=== PATIENT | female | born 2000 | race Caucasian/White ===

== ENCOUNTER 2021-12-13 21:18 | Outpatient (CLI) | payer BC, MEDICAID, SELFPAY ==
[2021-12-13] VITALS (9 sets, daily range): BP systolic 90–103; BP diastolic 50–55; PULSE 125–142; RESP 16; TEMP 37.8; BMI 25.7
[2021-12-13 21:52] LABS: Bilirubin Urine Neg (Negative); Blood Urine Neg (Negative); Glucose Urine UA Norm (Normal); Ketones Urine 3+ (Negative); Leukocyte Esterase Urine Trace (Negative); Nitrate Urine Negative (Negative); Protein Urine Neg (Negative); Specific Gravity, Urine 1.025 (1.005-1.030); Urine Color Yellow (Yellow); Urobilinogen Urine Norm (Negative); pH Urine 5 (5-7)
[2021-12-13 21:53] LABS: RBC Urine 0-4 /hpf (0-2); WBC Urine 15-25 /hpf (0-5)
[2021-12-13 21:54] LABS: Add Urine Culture? No; Bacteria Urine 3+ /hpf; Squamous Epithelial Cell Urine 40-55 /hpf (0-5)
[2021-12-13] MEDS: ondansetron 4 MG Tablet PO (22:17)
[2021-12-13 22:32] LABS: Urine Color Yellow (Yellow)
[2021-12-13 22:33] LABS: Bilirubin Urine Neg (Negative); Blood Urine Neg (Negative); Glucose Urine UA Norm (Normal); Ketones Urine 3+ (Negative); Leukocyte Esterase Urine Negative (Negative); Nitrate Urine Negative (Negative); Protein Urine Neg (Negative); Specific Gravity, Urine 1.025 (1.005-1.030); Urine Appearance Clear (CLEAR); Urobilinogen Urine Norm (Negative); pH Urine 5 (5-7)
[2021-12-13 22:34] LABS: Add Urine Culture? No; Bacteria Urine 1+ /hpf; Mucus Urine 4+ /hpf; RBC Urine 0-4 /hpf (0-2); SARS Covid-2 Antigen Negative (Negative)
== END 2021-12-13 22:55 | disposition home or self-care (01) ==
LOC: OPOB 21:21 → OBGYN 21:22
PROVIDERS: Visit Provider Family Medicine
DX: O26.899 Other specified pregnancy related conditions, unspecified trimester (principal); Z3A.00 Weeks of gestation of pregnancy not specified; M54.9 Dorsalgia, unspecified; R11.0 Nausea
CPT/HCPCS: 59025; 81001; 87426; 99211; Q0162

== ENCOUNTER 2021-12-28 12:30 | Outpatient (CLI) | payer BC, MEDICAID, SELFPAY ==
[2021-12-28 12:40] VITALS: BMI 24.5
[2021-12-28 12:49] VITALS: BP 110/60; PULSE 96; TEMP 35.9
[2021-12-28 13:04] VITALS: BP 105/56; PULSE 82
--- NOTE | 2021-12-28 13:25 | PC.NURSE ---
Patient reports she is taking an antibiotic but doesn't know the dose or name. Patient took antibiotic today at 1030
== END 2021-12-28 13:12 | disposition home or self-care (01) ==
LOC: OPOB 12:38 → OBGYN 12:47
PROVIDERS: Visit Provider Family Medicine
DX: O24.419 Gestational diabetes mellitus in pregnancy, unspecified control (principal); Z3A.00 Weeks of gestation of pregnancy not specified
CPT/HCPCS: 59025

== ENCOUNTER 2022-01-04 11:20 | Outpatient (CLI) | payer BC, MEDICAID, SELFPAY ==
[2022-01-04 11:31] VITALS: TEMP 36.3
[2022-01-04 11:32] VITALS: BP 100/59; PULSE 88
[2022-01-04 11:55] VITALS: BP 101/55; PULSE 90; TEMP 36.2
[2022-01-04 12:14] VITALS: BMI 25.3
[2022-01-04 12:51] VITALS: BP 101/55; PULSE 90
== END 2022-01-04 12:56 | disposition home or self-care (01) ==
LOC: OPOB 11:23 → OBGYN 11:24
PROVIDERS: Visit Provider Family Medicine
DX: O24.419 Gestational diabetes mellitus in pregnancy, unspecified control (principal); Z3A.00 Weeks of gestation of pregnancy not specified
CPT/HCPCS: 59025

== ENCOUNTER 2022-01-11 10:08 | Outpatient (CLI) | payer BC, MEDICAID, SELFPAY ==
[2022-01-11 10:08] VITALS: BMI 26.0
[2022-01-11 10:14] VITALS: BP 110/72; PULSE 101; TEMP 35.8
[2022-01-11 10:35] VITALS: BP 110/68; PULSE 89
--- NOTE | 2022-01-11 11:03 | PC.NURSE ---
PT HERE FOR SCHEDULED NST. STATES NO CTX BUT INCREASED PELVIC PRESSURE, REQUESTS CERVICAL EXAM. SVE UNCHANGED FROM OFFICE VISIT THURSDAY. NST AND EXAM REPORTED TO DR HORTON, ORDERS TO D/C
== END 2022-01-11 10:50 | disposition home or self-care (01) ==
LOC: OPOB 10:10 → OBGYN 10:11
PROVIDERS: Visit Provider Family Medicine
DX: O24.419 Gestational diabetes mellitus in pregnancy, unspecified control (principal); Z3A.00 Weeks of gestation of pregnancy not specified
CPT/HCPCS: 59025; 99211

== ENCOUNTER 2022-01-12 20:17 | Inpatient (IN) | payer BC, MEDICAID, SELFPAY ==
[2022-01-12] VITALS (9 sets, daily range): BP systolic 100–126; BP diastolic 60–68; PULSE 77–99; RESP 15–16; TEMP 36.3; BMI 26.0
[2022-01-12 19:53] LABS: Basophils % 0.3 %; Eosinophils % 0.3 %; Hematocrit 35.6 % (37.0-47.0); Hemoglobin 12.3 g/dL (11.5-15.3); Lymphocytes # 1.7 10^3/uL (1.5-6.5); Lymphocytes % 21.2 %; Mean Corpuscular HGB Conc 34.6 g/dL (30.0-36.0); Mean Corpuscular Hemoglobin 31.2 pg (28.0-34.0); Mean Corpuscular Volume 90.4 fl (81-99); Mean Platelet Volume 10.3 fL (7.4-10.4); Monocytes # 0.7 10^3/uL (0.2-0.9); Neutrophils # 5.33 10^3/uL (1.8-8.0); Neutrophils % 68.6 %; Nucleated Red Blood Cells % 0 %; Platelet Count 170 10^3/cmm (130-400); Red Blood Count 3.94 10^6/uL (4.1-5.3); Red Cell Distribution Width 14.4 % (12.1-15.1); White Blood Count 7.8 10^3/uL (4.5-13.0)
[2022-01-12 20:55] LABS: Glucose Point of Care 73 mg/dL (70-110)
[2022-01-12] MEDS: miSOPROStol 100 mcg tablet 25 MCG VAGINAL (21:03)
--- NOTE | 2022-01-12 23:31 | PC.NURSE ---
First baby was given up for adoption to patient's sister, Nisha. This was arranged prior to delivery and sister was present for that delivery. This is the same sister who is here as her support person for this delivery. Patient will be keeping this baby.
[2022-01-13] VITALS (70 sets, daily range): BP systolic 82–147; BP diastolic 44–96; PULSE 52–94; RESP 16–18; TEMP 36.1–36.9; O2SAT 92–100
[2022-01-13] MEDS: morphine 4 mg/mL SDV 1 mL 8 MG IM (00:36)
[2022-01-13] MEDS: promethazine 25 mg/mL SDV 1 mL IM (00:36)
[2022-01-13] MEDS: lactated ringers 1,000 ML 999 ML IV ×2 (01:15→07:27)
[2022-01-13] MEDS: miSOPROStol 100 mcg tablet 25 MCG VAGINAL (01:50)
[2022-01-13 03:15] LABS: Glucose Point of Care 76 mg/dL (70-110)
[2022-01-13] MEDS: fentaNYL 50 mcg/mL INJ 2mL IVP ×3 (05:10→07:27)
[2022-01-13 07:37] LABS: Glucose Point of Care 71 mg/dL (70-110)
--- NOTE | 2022-01-13 07:55 | ANES.PREANE2 ---
Pre-Anesthetic Assessment Height/Weight: Height 1.55 m Weight 62.596 kg Temp Pulse Resp BP 97.0 F L 67 18 111/66 01/13/22 05:14 01/13/22 07:41 01/13/22 07:27 01/13/22 07:41 Was Beta Leo taken within 24 hours: N/A Was Clonidine taken within 24 hours: N/A Social No alcohol and No tobacco Exam alert, oriented x 3, clear to auscultation bilaterally and regular rate & rhythm Airway Submandibular: within normal limits Cervical ROM: within normal limits Mallampati: Class I Dentition: full History/ROS No significant complaints Pulmonary None reported CV/HEM None reported None reported Hepatic None reported GI None reported Metabolic Diabetes Mellitus (GDM ) Musc/skel None reported Neuropsych None reported Anesthetic Plan ASA status: 1 Anesthesia: Anesthesia Evaluation and General Other: We discussed risk and benefits of general anesthesia including PONV, sore throat (sometimes severe), corneal abrasion, positioning and peripheral nerve injuries, life threatening allergic reaction, post operative ICU admission requiring prolonged intubation, stroke, heart attack, , and rare incidences of recall. Patient consents to proceed with general anesthesia. Risk of > 500 ml blood loss (7ml/kg in children): No Medications/Allergies Home Medications Medication Instructions Recorded Confirmed Last Taken Type prenat.vits,dmitri,ilp-thyi-ysaep 1 tab PO DAILY 12/13/21 12/28/21 12/28/21 09:00 History Allergies Allergy/AdvReac Type Severity Reaction Status Date / Time No Known Allergies Allergy Verified 12/28/21 13:26 Current Medications Generic Name Dose Route Start Last Admin Trade Name Mayank PRN Reason Stop Dose Admin Fentanyl 25 - 100 mcg 01/12/22 19:42 01/13/22 07:27 Fentanyl 50 Mcg/Ml Inj 2ml IVP 75 mcg Q1H PRN Administration SEVERE PAIN Lactated Ringer's 1,000 mls @ 999 mls/hr 01/12/22 19:42 01/13/22 07:27 Lactated Ringers IV 999 mls/hr .Q1H1M PRN Administration BLEEDING Lactated Ringer's 1,000 mls @ 999 mls/hr 01/12/22 19:42 01/13/22 01:46 Lactated Ringers IV 0 mls/hr .Q1H1M PRN Infusion Per L&D Rescitation Protocol [facility] Anesthesia Female Reproductive History : 2 Data Anesthesia : 01/12/22 19:30 Short CBC 01/12/22 Range/Units 19:30 WBC 7.8 (4.5-13.0) 10^3/uL Hgb 12.3 (11.5-15.3) g/dL Hct 35.6 L (37.0-47.0) % MCV 90.4 (81-99) fl Plt Count 170 (130-400) 10^3/cmm Neut % (Auto) 68.6 % Neut # (Auto) 5.33 (1.8-8.0) 10^3/uL Cardiac Studies: No Data to Display
--- NOTE | 2022-01-13 10:44 | PM.OPHPUD ---
Labor & Delivery H&P Update Date of Procedure: January 13, 2022 Date H&P Performed: 01/09/22 Changes to previous documentation: None Admission Diagnosis: 21-year-old 2 para 1-0-0-1 at 38 weeks and 4 days presenting for induction Primary indication for procedure: 38-week . Gestational diabetes Planned procedure: Spontaneous vaginal delivery Other information: The patient has had an unremarkable with exception of testing positive for gestational diabetes. Her blood sugars have been excellent on diet control alone. The remainder of her testing was within normal limits. Her blood type is O-. Her GBS status is negative.
--- NOTE | 2022-01-13 10:45 | P.PCNOB_ITS ---
Delivery Note: Date of delivery: January 13, 2022 Pre-delivery diagnoses: 1. 21-year-old 2 para 1-0-0-1at 38 weeks estimated gestational age. 2. Well-controlled gestational diabetic Post-delivery diagnoses: Status post spontaneous vaginal delivery Procedure: Spontaneous vaginal delivery Delivering Physician: Charlie Briscoe Estimated blood loss (mL): 50 Pre-Delivery Course: The patient presented to the hospital the night prior to delivery for induction. She was placed on Cytotec 25 mcg x 2 per vagina. The following morning an amniotomy was performed. An epidural was placed. She progressed to complete. Delivery: DELIVERY: The patient progressed to complete without difficulty. She delivered a female with a weight of 6 pounds 15 ounces with Apgars of 8, 9. The baby was delivered from the MEL position and placed on the mother's abdomen. The cord was then clamped and cut. There was no nuchal cord. There was no meconium. The placenta and 3 vessel cord were delivered intact shortly thereafter. The perineum and vaginal vault were carefully examined. No lacerations were noted. Both the mother and the baby were in stable condition. Post-Delivery Status: Good A&P Assessment and plan (1) 38 weeks gestation of : Status: Acute (2) Gestational diabetes mellitus: Status: Acute (3) Spontaneous vaginal delivery: I anticipate routine care. Her blood sugars have been excellent throughout her labor and throughout her . We will check her blood sugars twice daily but otherwise no intervention is likely to be necessary. Status: Acute Coding Level of Care Code Acute Team Leader/Research Psychologist for Chg Fwd Diagnoses 38 weeks gestation of Z3A.38 Gestational diabetes mellitus O24.419 Spontaneous vaginal delivery O80
[2022-01-13] MEDS: oxytocin 30 UNIT/500 ML BAG 600 UNIT IV (10:55)
--- NOTE | 2022-01-13 15:32 | ANES.PROC ---
Anesthesia Procedures Procedure/Date: 01/13/22 Epidural: Time Out Performed: Yes Consents Signed: Procedure Consent Consent: from patient Lumbar Level: L4-L5 Epidural position: sitting Epidural procedure: sterile prep of area, 1% lidocaine to numb the area, 18 g needle, neg for paresthesia, test dose given, 1.5% xylocaine 1:200k epi, 0.2% Ropivacaine bolus ml, placed PCEA, no systemic response, sterile dressing applied and 0.2% Ropiavacaine @ mls/hr (13) Additional Comments: Cap, mask donned by staff in room. Patient sat up. Patient prepped and draped in usual sterile fashion with Chlorprep. 1% lidocaine skin wheel. Tuohy inserted with stylet. Ligament engaged. Using GAUTAM w/ saline technique epidural space found, catheter threaded. Negative aspiration. Test dose 1.5% lidocaine with epinenephrine 1:200,000 total 3 cc. No response. Sterile dressing. Infusion started. Loss at? _? , catheter at _ . Tolerated well, 1 attempted, good block.?
--- NOTE | 2022-01-13 15:33 | ANE.PACU2 ---
Inpatient post-anesthesia follow up: Airway intact: Yes Vital signs: Temperature 98.4 F Pulse Rate 90 Respiratory Rate 16 Blood Pressure 147/73 Pulse Oximetry 97 Oxygen Delivery Me thod Room Air Oxygen Flow Rate Fraction of Inspir ed Oxygen Hydration adequate: Yes Nausea and vomiting: No Pain level: 4 Mental status: Baseline
[2022-01-13] MEDS: ibuprofen 800 mg tablet PO ×2 (16:12→21:38)
[2022-01-13 23:33] LABS: Hematocrit 35.8 % (37.0-47.0); Hemoglobin 12.3 g/dL (11.5-15.3); Mean Corpuscular HGB Conc 34.4 g/dL (30.0-36.0); Mean Corpuscular Hemoglobin 31.1 pg (28.0-34.0); Mean Corpuscular Volume 90.6 fl (81-99); Mean Platelet Volume 10.4 fL (7.4-10.4); Platelet Count 171 10^3/cmm (130-400); Red Blood Count 3.95 10^6/uL (4.1-5.3); Red Cell Distribution Width 14.2 % (12.1-15.1); White Blood Count 13.5 10^3/uL (4.5-13.0)
[2022-01-14 01:29] LABS: Glucose Point of Care 115 mg/dL (70-110)
[2022-01-14 04:26] VITALS: BP 114/79; PULSE 50
[2022-01-14] MEDS: prenatal vitamin Capsule 1 CAP PO (08:39)
[2022-01-14] MEDS: ibuprofen 800 mg tablet PO (08:39)
[2022-01-14] MEDS: docusate sodium 100 mg Capsule PO (08:39)
[2022-01-14 11:00] VITALS: BP 134/81; PULSE 64; RESP 16; TEMP 36.9
[2022-01-14 11:32] VITALS: BP 134/81; PULSE 64
--- NOTE | 2022-01-22 06:43 | PM.OBGYDC ---
Discharge Providers FIBERGLASS GRINDER Date of Admission: 01/12/22 20:17 Date of Discharge: 01/22/22 Attending Provider at Admission: Charlie Briscoe MD Attending Provider at Discharge: Charlie Briscoe MD Diagnoses at Discharge Discharge Diagnosis (1) 38 weeks gestation of : Status: Resolved (2) Gestational diabetes mellitus: Status: Resolved (3) Spontaneous vaginal delivery: Status: Resolved Reason for Visit Reason for Visit: induction Hospital Course Hospital Course The patient is a 38-week female with gestational diabetes. She presented to the hospital for induction. She was placed on Cytotec 25 mcg per vagina x2. She later had an amniotomy. An epidural was placed. She progressed to complete and had an unremarkable delivery of a healthy . Her course was unremarkable. Her bleeding was within normal limits. She did not breast-feed. Her pain was well controlled. Her blood sugars were excellent throughout her hospital stay. Information Peripartum Data: Infant Delivery Method: Vaginal Physical Exam Narrative: The patient is alert. She appears comfortable. Her heart has a regular rate and rhythm with no murmurs appreciated. Lungs are clear to auscultation bilaterally. Her fundus is firm and below the umbilicus. Urinary Catheter Management: Zaman: Cath Placed During This Visit: yes Urinary Catheter Date of Insertion: 01/13/22 Urinary Catheter Time of Insertion: 08:15 Discharge Data Studies Completed and Pending Laboratory Results WBC 13.5 10^3/uL (4.5-13.0) H 01/13/22 23:10 RBC 3.95 10^6/uL (4.1-5.3) L 01/13/22 23:10 Hgb 12.3 g/dL (11.5-15.3) 01/13/22 23:10 Hct 35.8 % (37.0-47.0) L 01/13/22 23:10 MCV 90.6 fl (81-99) 01/13/22 23:10 MCH 31.1 pg (28.0-34.0) 01/13/22 23:10 MCHC 34.4 g/dL (30.0-36.0) 01/13/22 23:10 RDW 14.2 % (12.1-15.1) 01/13/22 23:10 Plt Count 171 10^3/cmm (130-400) 01/13/22 23:10 MPV 10.4 fL (7.4-10.4) 01/13/22 23:10 Neut % (Auto) 68.6 % 01/12/22 19:30 Lymph % (Auto) 21.2 % 01/12/22 19:30 [place] % (Auto) 9.0 % 01/12/22 19:30 Eos % (Auto) 0.3 % 01/12/22 19:30 Baso % (Auto) 0.3 % 01/12/22 19:30 Neut # (Auto) 5.33 10^3/uL (1.8-8.0) 01/12/22 19:30 Lymph # (Auto) 1.7 10^3/uL (1.5-6.5) 01/12/22 19:30 [place] # (Auto) 0.7 10^3/uL (0.2-0.9) 01/12/22 19:30 Eos # (Auto) 0.0 10^3/uL (0.0-0.8) 01/12/22 19:30 Baso # (Auto) 0.0 10^3/uL (0.0-0.1) 01/12/22 19:30 Nucleated RBC % (auto) 0 % 01/12/22 19:30 Nucleated RBCs # 0.0 /100WBC 01/12/22 19:30 POC Glucose 115 mg/dL (70-110) H 01/14/22 01:25 Vitals Last Vital Signs Temp 98.4 F 01/14/22 11:00 Pulse 64 01/14/22 11:32 Resp 16 01/14/22 11:00 BP 134/81 01/14/22 11:32 Pulse Ox 97 01/13/22 08:10 Discharge Plan Discharge Patient Disposition: Home Condition: Stable Prescriptions: New ibuprofen 800 mg Tablet 800 mg PO TID Qty: 45 0RF Continued prenat.vits,dmitri,qyq-dcmm-beipc Tablet 1 tab PO DAILY 0RF Discharge Orders: Discharge Order (Routine); Ordered 01/14/22 Ordered By: Charlie Briscoe Referrals: Charlie Briscoe MD [Physician] - 03/03/22 12:00 pm Discharge Diet: Regular Discharge Activity: Limit activity as instructed Patient Instructions: Depression (DC), Bleeding (DC), Preeclampsia and Eclampsia After Delivery (GEN), OB Discharge Report, OB Food/Drug Interaction Guide, OB Care at Home, Opioid Safety, OB Home Care, OB Proud Parent Packet, OB Vaginal Deliveries, Abnormal Bleeding Discharge Attestations FIBERGLASS GRINDER Time Spent in Discharge Care*: less than 30 min Coding Level of Care Code Acute Physical Security Specialist for Chg Fwd Diagnoses 38 weeks gestation of Z3A.38 Gestational diabetes mellitus O24.419 Spontaneous vaginal delivery O80
== END 2022-01-14 11:40 | disposition home or self-care (01) | DRG 807 ==
LOC: OPOB 20:18 → OBGYN 20:18
PROVIDERS: Admitting Provider Family Medicine; Visit Provider Family Medicine
DX: O24.420 Gestational diabetes mellitus in childbirth, diet controlled (principal); Z37.0 Single live birth; Z3A.38 38 weeks gestation of pregnancy
CPT/HCPCS: 12345; 36415; 36416; 51702; 59025; 59409; 82962; 85025; 85027; 96372; J2270; J2550; J2795; J3010

== ENCOUNTER 2023-11-21 04:18 | Emergency (ER) | payer BC, MEDICAID, SELFPAY ==
[2023-11-21 04:24] VITALS: BP 108/61; PULSE 110; RESP 18; TEMP 36.8; O2SAT 99; BMI 24.5
--- NOTE | 2023-11-21 05:09 | XRR_ITS ---
PROCEDURE INFORMATION: Exam: XR Chest Exam date and time: 11/21/2023 5:14 AM Age: 23 years old Clinical indication: Cough; Additional info: Cough/congestion TECHNIQUE: Imaging protocol: Radiologic exam of the chest. Views: 1 view. COMPARISON: No relevant prior studies available. FINDINGS: Lungs: Unremarkable. No consolidation. Pleural spaces: Unremarkable. No pleural effusion. No pneumothorax. Heart/Mediastinum: Unremarkable. No cardiomegaly. Bones/joints: Unremarkable. XR/XR chest 1V portable [id number] IMPRESSION: No acute cardiopulmonary findings.
--- NOTE | 2023-11-21 05:10 | ED_ITS ---
Documented by User: Kanu Madison MD 11/21/23 05:47 HPI - URI/Sore Throat General: Chief Complaint: Upper Respiratory Infection Stated Complaint: chest pressure coughing migraine throat pain Time Seen by Provider: 11/21/23 04:46 History of Present Illness: 23-year-old female presents emergency de partment complaints of cough which is nonproductive for the previous 2 days. She also complains of generalized head congestion and chest congestion for the same duration of time. She states she has a headache that is a throbbing headache that she describes as a 4 out of 10. She states her ribs hurt because she has been coughing so much. She endorses generalized body aches and also endorses recent sick contacts with similar illnesses. She states she was seen by Umesh Quiñones yesterday and advised to take 3 ibuprofen in the morning and 3 ibuprofen in the evening as well as some [id number] flu medication and she states that has not helped. Associated symptoms: Reports fever(s) and headache(s) Review of Systems General: Reports: 10 or more systems reviewed and unremarkable except in HPI and below Const: Reports: fever(s), body aches, fatigue and malaise Resp: Reports: non-productive cough and chest congestion Neuro: Reports: headache(s) Physical Exam Const: COMMON NORMALS: no acute distress, patient oriented x3 and alert HENMT: COMMON NORMALS: normocephalic, atraumatic, external ears normal, TM's normal bilaterally and moist oral mucous membranes HEAD & SCALP: normocephalic and atraumatic EXTERNAL EAR: Yes external ears normal TYMPANIC MEMBRANE: TM's normal bilaterally Eye: COMMON NORMALS: Equal, round and reactive pupils present and EOMs intact bilaterally PUPIL: Yes Equal, round and reactive pupils present Neck/C-Spine: COMMON NORMALS: full ROM, no lymphadenopathy, supple and no meningeal signs Resp: COMMON NORMALS: normal respiratory effort and clear to auscultation bilaterally AUSCULTATION: clear to auscultation bilaterally Cardio: COMMON NORMALS: regular rate, regular rhythm, S1 normal heart sound present, S2 normal heart sound present and Peripheral pulses 2+ throughout RATE: regular rate RHYTHM: regular rhythm HEART SOUNDS: S1 normal heart sound present and S2 normal heart sound present PERIPHERAL PULSES: Peripheral pulses 2+ throughout GI: COMMON NORMALS: Normal to inspection, nondistended, normoactive bowel sounds present, Soft to palpation and non-tender PALPATION: Yes Soft to palpation Extremity: COMMON NORMALS: normal to inspection, full ROM and capillary refill normal Neuro: COMMON NORMALS: patient oriented x3 SENSORIUM/ORIENTATION: Yes alert MENINGEAL SIGNS: Yes no meningeal signs Psych: COMMON NORMALS: mental status grossly normal, Normal thought process present and cooperative THOUGHT PROCESS: Normal thought process present Skin: COMMON NORMALS: no rashes or lesions noted and turgor normal GENERAL SKIN EXAM: no rashes or lesions noted and turgor normal Course Vital Signs: Vital signs: Vital Signs Temperature 98.2 F 11/21/23 04:24 Pulse Rate 108 H 11/21/23 05:30 Respiratory Rate 18 11/21/23 05:30 Blood Pressure 97/55 11/21/23 05:30 Pulse Oximetry 100 11/21/23 05:30 Oxygen Delivery Me thod Room Air 11/21/23 05:30 MDM - URI/Sore Throat Medical Decision Making Physical exam completed and documented I will obtain a chest x-ray as well as influenza COVID and strep screen. I will obtain a UA and urine hCG. I have discussed the patient's case with the on-coming physician <Dr. Geiger> and they have assumed care of the patient. We have discussed the current lab/radiographic results that have been resulted and the pending tests. Medical Records I reviewed the patient's medical records. Lab Data Radiology Impressions Chest X-Ray 11/21/23 05:09 IMPRESSION: No acute cardiopulmonary findings. Laboratory Results HCG, Qual Negative (Negative) 11/21/23 04:43 Urine Color Yellow (Yellow) 11/21/23 04:43 Urine Appearance Hazy (CLEAR) A 11/21/23 04:43 Urine pH 5 (5-7) 11/21/23 04:43 Ur Specific [place] 1.020 (1.005-1.030) 11/21/23 04:43 Urine Protein Neg (Negative) 11/21/23 04:43 Urine Glucose (UA) Norm (Normal) 11/21/23 04:43 Urine Ketones Negative (Negative) 11/21/23 04:43 Urine Blood Neg (Negative) 11/21/23 04:43 Urine Nitrate Negative (Negative) 11/21/23 04:43 Urine Bilirubin Neg (Negative) 11/21/23 04:43 Urine Urobilinogen Norm mg/dL (Negative) 11/21/23 04:43 Ur Leukocyte Esterase 1+ (Negative) H 11/21/23 04:43 Urine RBC 0-4 /hpf (0-2) H 11/21/23 04:43 Urine WBC 5-10 /hpf (0-5) H 11/21/23 04:43 Ur Squamous Epith Cells 5-10 /hpf (0-5) H 11/21/23 04:43 Amorphous Sediment Not Reportable 11/21/23 04:43 Urine Bacteria 1+ /hpf (NONE) H 11/21/23 04:43 Urine Mucus 2+ /hpf 11/21/23 04:43 Influenza Type A Ag positive (Negative) H 11/21/23 05:26 Influenza Type B Ag negative (Negative) 11/21/23 05:26 SARS-CoV-2 Ag (Rapid) negative (Negative) 11/21/23 05:26 Group A Strep Rapid Negative (Negative) 11/21/23 05:26 All radiology interpretation(s) finalized by discharge Discharge Plan Discharge Patient Disposition: Home Clinical Impression: Influenza Condition: Stable Prescriptions: No Action prenat.vits,dmitri,uec-gnft-kjbgd Tablet 1 tab PO DAILY ibuprofen 800 mg Tablet 800 mg PO TID Qty: 45 0RF Discharge Orders: Discharge ED (Routine); Ordered 11/21/23 Ordered By: Chato Geiger Discharge Diet: Usual diet Discharge Activity: Increase activity as tolerated Patient Instructions: Influenza (ED), Opioid Safety, Pain Management Activity Restrictions/Additional Instructions: Thank you for choosing [facility] for your healthcare needs today. Please realize this is an emergency room and that we are providing you with a medical screening exam and this may not be complete and all inclusive of all the testing and or work up that you may need to determine your ailment or severity of your illness. It is very important that you follow up as instructed or that you return to the Emergency Department should you have concerns or if your condition changes or worsens in any way. You received today for cough headache and bodyaches. He tested positive for influenza A. You are outside the window for treatment with antivirals for influenza. Recommend anti-inflammatory such as ibuprofen or Naprosyn, you can also use acetaminophen for headache aches and pain or fever. You may also use other cough cold remedies [id number] as needed. Sign Out Sign Out Data: Patient Sign Out occurred on 11/21/23 at 05:58. Patient's care was discussed, and care was transferred from Kanu Madison MD to Chato Geiger DO. Coding Level of Care Code ED Can Machine Operator for Chg Fwd Documented by User: Chato Geiger DO 11/21/23 07:42 HPI - URI/Sore Throat General: Chief Complaint: Upper Respiratory Infection Stated Complaint: chest pressure coughing migraine throat pain Time Seen by Provider: 11/21/23 04:46 Course Vital Signs: Vital signs: Vital Signs Temperature 98.2 F 11/21/23 04:24 Pulse Rate 108 H 11/21/23 05:30 Respiratory Rate 18 11/21/23 05:30 Blood Pressure 97/55 11/21/23 05:30 Pulse Oximetry 100 11/21/23 05:30 Oxygen Delivery Me thod Room Air 11/21/23 05:30 MDM - URI/Sore Throat Medical Decision Making Physical exam completed and documented I will obtain a chest x-ray as well as influenza COVID and strep screen. I will obtain a UA and urine hCG. I have discussed the patient's case with the on-coming physician <Dr. Geiger> and they have assumed care of the patient. We have discussed the current lab/radiographic results that have been resulted and the pending tests. Care assumed at change of shift influenza A is positive on their swabs. She is beyond 48 hours from onset of symptoms. She be given a liter of IV fluids and a dose of IV ketorolac discharged home with supportive cares. Lab Data Radiology Impressions Chest X-Ray 11/21/23 05:09 IMPRESSION: No acute cardiopulmonary findings. Laboratory Results HCG, Qual Negative (Negative) 11/21/23 04:43 Urine Color Yellow (Yellow) 11/21/23 04:43 Urine Appearance Hazy (CLEAR) A 11/21/23 04:43 Urine pH 5 (5-7) 11/21/23 04:43 Ur Specific [place] 1.020 (1.005-1.030) 11/21/23 04:43 Urine Protein Neg (Negative) 11/21/23 04:43 Urine Glucose (UA) Norm (Normal) 11/21/23 04:43 Urine Ketones Negative (Negative) 11/21/23 04:43 Urine Blood Neg (Negative) 11/21/23 04:43 Urine Nitrate Negative (Negative) 11/21/23 04:43 Urine Bilirubin Neg (Negative) 11/21/23 04:43 Urine Urobilinogen Norm mg/dL (Negative) 11/21/23 04:43 Ur Leukocyte Esterase 1+ (Negative) H 11/21/23 04:43 Urine RBC 0-4 /hpf (0-2) H 11/21/23 04:43 Urine WBC 5-10 /hpf (0-5) H 11/21/23 04:43 Ur Squamous Epith Cells 5-10 /hpf (0-5) H 11/21/23 04:43 Amorphous Sediment Not Reportable 11/21/23 04:43 Urine Bacteria 1+ /hpf (NONE) H 11/21/23 04:43 Urine Mucus 2+ /hpf 11/21/23 04:43 Influenza Type A Ag positive (Negative) H 11/21/23 05:26 Influenza Type B Ag negative (Negative) 11/21/23 05:26 SARS-CoV-2 Ag (Rapid) negative (Negative) 11/21/23 05:26 Group A Strep Rapid Negative (Negative) 11/21/23 05:26 Discharge Plan Discharge Patient Disposition: Home Clinical Impression: Influenza Condition: Stable Prescriptions: No Action prenat.vits,dmitri,yjp-nfpq-hnpaq Tablet 1 tab PO DAILY ibuprofen 800 mg Tablet 800 mg PO TID Qty: 45 0RF Discharge Orders: Discharge ED (Routine); Ordered 11/21/23 Ordered By: Chato Geiger Discharge Diet: Usual diet Discharge Activity: Increase activity as tolerated Patient Instructions: Influenza (ED), Opioid Safety, Pain Management Activity Restrictions/Additional Instructions: Thank you for choosing [facility] for your healthcare needs today. Please realize this is an emergency room and that we are providing you with a medical screening exam and this may not be complete and all inclusive of all the testing and or work up that you may need to determine your ailment or severity of your illness. It is very important that you follow up as instructed or that you return to the Emergency Department should you have concerns or if your condition changes or worsens in any way. You received today for cough headache and bodyaches. He tested positive for influenza A. You are outside the window for treatment with antivirals for influenza. Recommend anti-inflammatory such as ibuprofen or Naprosyn, you can also use acetaminophen for headache aches and pain or fever. You may also use other cough cold remedies [id number] as needed. Sign Out Sign Out Data: Patient Sign Out occurred on 11/21/23 at 05:58. Patient's care was discussed, and care was transferred from Kanu Madison MD to Chato Geiger DO. Coding Level of Care Code ED Can Machine Operator for Clayton Mcknight
[2023-11-21 05:30] VITALS: BP 97/55; PULSE 108; RESP 18; O2SAT 100
[2023-11-21 05:30] LABS: HCG Qualitative Urine. Negative (Negative)
[2023-11-21 05:32] LABS: Urine Appearance Hazy (CLEAR); Urine Color Yellow (Yellow); pH Urine 5 (5-7)
[2023-11-21 05:33] LABS: Add Urine Microscopic? YES; Bacteria Urine 1+ /hpf; Bilirubin Urine Neg (Negative); Blood Urine Neg (Negative); Glucose Urine UA Norm (Normal); Ketones Urine Negative (Negative); Leukocyte Esterase Urine 1+ (Negative); Mucus Urine 2+ /hpf; Nitrate Urine Negative (Negative); Protein Urine Neg (Negative); RBC Urine 0-4 /hpf (0-2); Urobilinogen Urine Norm (Negative)
[2023-11-21 05:48] LABS: Influenza A by IFA positive (Negative); Influenza B by IFA negative (Negative)
[2023-11-21 05:51] LABS: Rapid Strep A Test Negative (Negative)
[2023-11-21 05:58] LABS: SARS Covid-2 Antigen negative (Negative)
[2023-11-21] MEDS: sodium chloride 0.9% 1,000 ML 999 ML IV (06:49)
[2023-11-21] MEDS: ketorolac 30 mg/mL INJ IVP (06:50)
== END 2023-11-21 07:47 | disposition home or self-care (01) ==
PROVIDERS: Internal Medicine; Emergency Provider Family Medicine
DX: J10.1 Influenza due to other identified influenza virus with other respiratory manifestations (principal); Z11.52 Encounter for screening for COVID-19
CPT/HCPCS: 71045; 81001; 81025; 87081; 87426; 87804; 87880; 96361; 96374; 99284; J1885; J7030

== ENCOUNTER 2023-11-30 20:27 | Emergency (ER) | payer BC, MEDICAID, SELFPAY ==
[2023-11-30 20:32] VITALS: BP 94/59; PULSE 63; RESP 16; TEMP 36.6; O2SAT 97; BMI 24.5
--- NOTE | 2023-11-30 21:06 | ED_ITS ---
HPI - Animal Bite General: Chief Complaint: Animal Bite Stated Complaint: right thigh redness, insect bite Time Seen by Provider: 11/30/23 20:33 Source: patient Mode of arrival: ambulatory Limitations: no limitations History of Present Illness: 23-year-old female who states that she n oticed a bite to her right elbow along with her right hip over the last 2 days states that both areas are pruritic she denies any pain denies any fevers she denies any worsening proving factors. She has had no drainage Associated symptoms: Deny chills or fever(s) Review of Systems Const: Denies: fever(s) or chills ENMT: Denies: throat pain or dental pain Card: Denies: chest pain Resp: Denies: dyspnea GI: Denies: abdominal pain, nausea, vomiting or diarrhea Musc: Denies: neck pain or back pain Skin/Breast: Reports: rash and erythema [facility] ED Female Reproductive History: Date of last menstrual period: 11/04/23 Physical Exam Const: COMMON NORMALS: no acute distress and patient oriented x3 HENMT: COMMON NORMALS: normocephalic and atraumatic HEAD & SCALP: normocephalic and atraumatic Eye: COMMON NORMALS: conjunctivae normal CONJUNCTIVA: Yes conjunctivae normal Neck/C-Spine: COMMON NORMALS: supple Chest: COMMONS NORMALS: normal inspection of the chest Extremity: NARRATIVE EXTREMITY EXAM: Insect bite noted to right elbow no abscess formation Neuro: COMMON NORMALS: patient oriented x3 Psych: COMMON NORMALS: mental status grossly normal Skin: NARRATIVE SKIN EXAM: Insect bite noted to right hip along with right elbow she has no abscess formation no signs of cellulitis Course Vital Signs: Vital signs: Vital Signs Temperature 97.8 F 11/30/23 20:32 Pulse Rate 63 11/30/23 20:32 Respiratory Rate 16 11/30/23 20:32 Blood Pressure 94/59 11/30/23 20:32 Pulse Oximetry 97 11/30/23 20:32 Oxygen Delivery Me thod Room Air 11/30/23 20:32 MDM - Animal Bite Medical Decision Making Patient presents here with insect bite to right hip along with right elbow she has no signs of abscess or cellulitis we will send Keflex to her pharmacy informed her to only fill it and start it if she starts having worsening eryth keila she is to return here if she has any drainage or abscess formation Medical Records I reviewed the patient's medical records. No radiology studies performed this visit Discharge Plan Discharge Patient Disposition: Home Clinical Impression: Insect bite Qualifiers: Encounter type: initial encounter Site of insect bite: thigh Laterality: right Qualified Code(s): S70.361A - Insect bite (nonvenomous), right thigh, initial encounter Condition: Stable Prescriptions: New cephalexin 500 mg capsule 500 mg PO TID 7 Days Qty: 21 0RF No Action prenat.vits,dmitri,[id number] Tablet 1 tab PO DAILY ibuprofen 800 mg Tablet 800 mg PO TID Qty: 45 0RF Discharge Orders: Discharge ED (Routine); Ordered 11/30/23 Ordered By: Shane Garcia Discharge Diet: Advance as tolerated Discharge Activity: Resume usual activity Patient Instructions: Insect Bite or Sting (ED) Coding Level of Care Code ED Supervisor Gas Meter Repair for Clayton Mcknight
== END 2023-11-30 21:15 | disposition home or self-care (01) ==
PROVIDERS: Emergency Provider Emergency Medicine
DX: S70.361A Insect bite (nonvenomous), right thigh, initial encounter (principal); W57.XXXA Bitten or stung by nonvenomous insect and other nonvenomous arthropods, initial encounter
CPT/HCPCS: 99283

== ENCOUNTER 2024-03-03 09:57 | Emergency (ER) | payer SELFPAY ==
[2024-03-03 10:03] VITALS: BP 97/65; PULSE 70; RESP 16; TEMP 36.8; O2SAT 96
--- NOTE | 2024-03-03 10:14 | ED_ITS ---
HPI - Female Genitourinary 2 General: Chief complaint: Urogenital-Female Stated complaint: lower abd pain Time Seen by Provider: 03/03/24 10:14 Source: patient Mode of arrival: ambulatory History of Present Illness: 24-year-old female presents emergency ro om with complaint of lower left abdominal discomfort. Her primary concern at this time is possibility that she is she had a tubal ligation about a year ago she states she is 5 days late for her period. She has not had any history of ovarian cysts. She denies dysuria urgency or frequency, no hematuria. No rectal bleeding no diarrhea. Mild vague cramping predominantly on the left side compared to the right. No other symptoms. MD elicited complaint: pelvic pain Onset (ago): day(s) (5) Quality of pain: cramping Consistency: intermittent Vaginal discharge: none Vaginal bleeding: none Relieving factors: none Associated symptoms: Reports abdominal pain; Deny short of breath, fevers/chills, headache(s), nausea, rash, seizures, syncope, vaginal bleeding, vaginal discharge or weakness Treatment prior to arrival: none Review of Systems 2 Const: Denies: fever(s) or chills Card: Denies: chest pain or syncope Resp: Denies: dyspnea GI: Reports: abdominal pain; Denies: nausea, vomiting or diarrhea : Reports: pelvic pain; Denies: flank pain, dysuria, urinary frequency, urinary urgency, vaginal bleeding or vaginal discharge Musc: Denies: neck pain or back pain Skin/Breast: Denies: rash Neuro: Denies: headache(s) Physical Exam 2 Const: COMMON NORMALS: no acute distress GENERAL APPEARANCE: cooperative and comfortable ORIENTATION/CONSCIOUSNESS: Yes awake, Yes oriented to person, Yes oriented to place and Yes oriented to time HENMT: COMMON NORMALS: normocephalic, atraumatic and hearing grossly normal bilaterally HEAD & SCALP: normocephalic and atraumatic Resp: COMMON NORMALS: normal respiratory effort, No retractions, No use of accessory muscles and clear to auscultation bilaterally AUSCULTATION: clear to auscultation bilaterally Cardio: COMMON NORMALS: regular rate, regular rhythm and No murmurs present (Cardio) RATE: regular rate RHYTHM: regular rhythm GI: COMMON NORMALS: Soft to palpation and No hepatosplenomegaly present A USCULTATION: Yes normoactive bowel sounds PALPATION: Yes Soft to palpation, No Tenderness to palpation present (GI), No Guarding due to palpation present (GI) and Yes No hepatosplenomegaly present : SPECULUM EXAM - VAGINA: No vaginal bleeding OB/EXTERNAL & SPECULUM: No vaginal bleeding Extremity: COMMON NORMALS: normal to inspection, capillary refill normal, no clubbing, cyanosis or edema, no calf tenderness and no pedal edema Neuro: SENSORIUM/ORIENTATION: Yes oriented to person, Yes oriented to place and Yes oriented to time Skin: COMMON NORMALS: no rashes or lesions noted GENERAL SKIN EXAM: no rashes or lesions noted Course 2 Vital Signs: Vital signs: Vital Signs Temperature 98.2 F 03/03/24 10:03 Pulse Rate 65 03/03/24 12:09 Respiratory Rate 16 03/03/24 10:03 Blood Pressure 112/82 03/03/24 12:09 Pulse Oximetry 100 03/03/24 12:09 Oxygen Delivery Me thod Room Air 03/03/24 11:30 MDM - Female Medical Decision Making CT of the abdomen showed some pelvic venous congestion no signs of a pelvic thrombus. I discussed specifically with Dr. Randall there is no enlargement of the ovaries no sign of abscess. All ultrasound is a better venue no evidence of acute emergent abnormality. Will set her up for an outpatient nonemergent pelvic ultrasound Medical Records I reviewed the patient's medical records. Lab Data I reviewed the patient's lab results. 03/03/24 10:16 03/03/24 10:16 Radiology Impressions Abdomen/Pelvis CT 03/03/24 10:44 IMPRESSION: 1. No renal obstruction or ascites. 2. Prior appendectomy. 3. Moderate constipation distal colon. Laboratory Results WBC 5.07 10^3/uL (3.29-11.43) 03/03/24 10:16 RBC 4.51 10^6/uL (3.85-5.65) 03/03/24 10:16 Hgb 13.30 g/dL (11.27-16.99) 03/03/24 10:16 Hct 39.1 % (36-47) 03/03/24 10:16 MCV 86.7 fl (85-98) 03/03/24 10:16 MCH 29.5 pg (27-33) 03/03/24 10:16 MCHC 34.0 g/dL (30-55) 03/03/24 10:16 RDW 13.2 % (12.1-15.1) 03/03/24 10:16 Plt Count 284 10^3/cmm (157-399) 03/03/24 10:16 MPV 9.7 fL (7.4-10.4) 03/03/24 10:16 Neut % (Auto) 54.4 % 03/03/24 10:16 Lymph % (Auto) 35.1 % 03/03/24 10:16 [place] % (Auto) 8.5 % 03/03/24 10:16 Eos % (Auto) 1.2 % 03/03/24 10:16 Baso % (Auto) 0.6 % 03/03/24 10:16 Neut # (Auto) 2.76 10^3/uL (1.8-7.7) 03/03/24 10:16 Lymph # (Auto) 1.8 10^3/uL (0.8-4.8) 03/03/24 10:16 [place] # (Auto) 0.4 10^3/uL (0.2-0.9) 03/03/24 10:16 Eos # (Auto) 0.1 10^3/uL (0.0-0.8) 03/03/24 10:16 Baso # (Auto) 0.0 10^3/uL (0.0-0.1) 03/03/24 10:16 Nucleated RBC % (auto) 0 % 03/03/24 10:16 Nucleated RBCs # 0.0 /100WBC 03/03/24 10:16 Sodium 138 mmol/L (136-145) 03/03/24 10:16 Potassium 3.5 mmol/L (3.5-5.1) 03/03/24 10:16 Chloride 105 mmol/L (98-107) 03/03/24 10:16 Carbon Dioxide 18 mmol/L (22-29) L 03/03/24 10:16 Anion Gap 18.5 (5-19) 03/03/24 10:16 BUN 12 mg/dL (6-20) 03/03/24 10:16 Creatinine 0.5 mg/dL (0.5-0.9) 03/03/24 10:16 GFR Calculation 152.9 mL/min (90-130) H 03/03/24 10:16 Glucose 77 mg/dL (65-115) 03/03/24 10:16 Calculated Osmolality 285 mOsm/kg (285-295) 03/03/24 10:16 Calcium 9.3 mg/dL (8.5-10.5) 03/03/24 10:16 Total Bilirubin 0.9 mg/dL (0.15-1.2) 03/03/24 10:16 AST 11 U/L (0-32) 03/03/24 10:16 ALT 10 U/L (0-33) 03/03/24 10:16 Alkaline Phosphatase 79 U/L (35-105) 03/03/24 10:16 Total Protein 7.4 g/dL (6.6-8.7) 03/03/24 10:16 Albumin 4.4 g/dL (3.5-5.2) 03/03/24 10:16 Globulin 3.0 g/dL (1.3-4.6) 03/03/24 10:16 Lipase 29 U/L (13-60) 03/03/24 10:16 HCG, Qual Negative (Negative) 03/03/24 10:16 Urine Color Yellow (Yellow) 03/03/24 10:26 Urine Appearance Cloudy (CLEAR) A 03/03/24 10:26 Urine pH 6 (5-7) 03/03/24 10:26 Ur Specific [place] 1.020 (1.005-1.030) 03/03/24 10:26 Urine Protein Neg (Negative) 03/03/24 10:26 Urine Glucose (UA) Norm (Normal) 03/03/24 10:26 Urine Ketones Negative (Negative) 03/03/24 10:26 Urine Blood Neg (Negative) 03/03/24 10:26 Urine Nitrate Negative (Negative) 03/03/24 10:26 Urine Bilirubin 1+ (Negative) H 03/03/24 10:26 Urine Urobilinogen 1 mg/dL (Negative) H 03/03/24 10:26 Ur Leukocyte Esterase 2+ (Negative) H 03/03/24 10:26 Urine RBC 0-4 /hpf (0-2) H 03/03/24 10:26 Urine WBC 5-10 /hpf (0-5) H 03/03/24 10:26 Ur Squamous Epith Cells 15-25 /hpf (0-5) H 03/03/24 10:26 Amorphous Sediment Not Reportable 03/03/24 10:26 Urine Bacteria Trace /hpf (NONE) 03/03/24 10:26 Urine Mucus 2+ /hpf 03/03/24 10:26 Ur Oval Fat Bodies 1+ /hpf 03/03/24 10:26 All radiology interpretation(s) finalized by discharge Discharge Plan Discharge Patient Disposition: Home Clinical Impression: Pelvic pain Condition: Stable Prescriptions: New diclofenac sodium 75 mg tablet,delayed release (DR/EC) 75 mg PO Q12H PRN (Reason: pain) Qty: 20 0RF Discharge Orders: Discharge ED (Routine); Ordered 03/03/24 Ordered By: Chato Geiger Referrals: Charlie Briscoe MD [Primary Care Provider] - Discharge Diet: Usual diet Discharge Activity: Increase activity as tolerated Patient Instructions: Opioid Safety, Pain Management Activity Restrictions/Additional Instructions: Thank you for choosing [facility] for your healthcare needs today. It is very important that you follow up as instructed or that you return to the Emergency Department should you have concerns or if your condition changes or worsens in any way. You were seen today for pelvic discomfort. CT did not show any significant abnormalities are reviewed the case with Dr. Randall who read the CT. Your test was negative your urine was normal. There were a few minor pelvic varicosities but no fluid in the pelvis. You are given diclofenac to use as needed and recommend following up with your primary care doctor if symptoms persist. Stand Alone Forms: Work/School Release Coding Level of Care Code ED Online Advertising Manager for Clayton Mcknight
[2024-03-03 10:21] LABS: Basophils % 0.6 %; Eosinophils # 0.1 10^3/uL (0.0-0.8); Eosinophils % 1.2 %; Hematocrit 39.1 % (36-47); Lymphocytes # 1.8 10^3/uL (0.8-4.8); Lymphocytes % 35.1 %; Mean Corpuscular Hemoglobin 29.5 pg (27-33); Mean Corpuscular Volume 86.7 fl (85-98); Mean Platelet Volume 9.7 fL (7.4-10.4); Monocytes # 0.4 10^3/uL (0.2-0.9); Monocytes % 8.5 %; Neutrophils # 2.76 10^3/uL (1.8-7.7); Neutrophils % 54.4 %; Nucleated Red Blood Cells % 0 %; Platelet Count 284 10^3/cmm (157-399); Red Blood Count 4.51 10^6/uL (3.85-5.65); Red Cell Distribution Width 13.2 % (12.1-15.1); White Blood Count 5.07 10^3/uL (3.29-11.43)
[2024-03-03 10:36] LABS: HCG, Serum Qual Negative (Negative)
[2024-03-03 10:39] LABS: Alanine Aminotransferase 10 U/L (0-33); Albumin Level 4.4 g/dL (3.5-5.2); Alkaline Phosphatase 79 U/L (35-105); Anion Gap 18.5 (5-19); Aspartate Amino Transferase 11 U/L (0-32); Blood Urea Nitrogen 12 mg/dL (6-20); Calcium 9.3 mg/dL (8.5-10.5); Carbon Dioxide 18 mmol/L (22-29); Chloride 105 mmol/L (98-107); Glomerular Filtration Rate 152.9 mL/min (90-130); Glucose 77 mg/dL (65-115); Lipase 29 U/L (13-60); Osmolality Calculated 285 mOsm/kg (285-295); Potassium 3.5 mmol/L (3.5-5.1); Sodium 138 mmol/L (136-145); Total Bilirubin 0.9 mg/dL (0.15-1.2); Total Protein 7.4 g/dL (6.6-8.7)
[2024-03-03 10:44] LABS: Add Urine Microscopic? YES; Bilirubin Urine 1+ (Negative); Blood Urine Neg (Negative); Glucose Urine UA Norm (Normal); Ketones Urine Negative (Negative); Leukocyte Esterase Urine 2+ (Negative); Nitrate Urine Negative (Negative); Protein Urine Neg (Negative); Urine Appearance Cloudy (CLEAR); Urine Color Yellow (Yellow); Urobilinogen Urine 1 mg/dL (Negative); pH Urine 6 (5-7)
--- NOTE | 2024-03-03 10:44 | CT_ITS ---
WS: [id number] CT ABDOMEN AND PELVIS NONCONTRAST HISTORY: Abdominal pain, LEFT lower quadrant pain. TECHNIQUE: Imaging performed through the abdomen and pelvis. Coronal and sagittal reformats are submi tted. All CT scans at [facility] use at least one of these dose optimization techniques: auto mated exposure control; mA and/or kV adjustment per patient size (includes targeted exams where dose is matched to clinical indication); or iterative reconstruction. DLP: 344.46 mGy.cm COMPARISON: None available. Lower thorax: Lung bases are clear. Visualized heart is normal. No hiatal hernia. Liver: Normal size liver. No mass or bile duct dilatation. Gallbladder: Normal gallbladder. No pericholecystic fluid or cholelithiasis. No gallbladder wall thic kening. Pancreas: Normal size and attenuation. Normal pancreatic duct. No pancreatitis or mass. Spleen: Normal. Adrenal glands: Normal. No mass. Right kidney: Normal size kidney with no mass or hydronephrosis. Left kidney: Normal size kidney. There is a tiny cortical calcification in the upper pole. No obstruc tion. Aorta: Normal abdominal aorta, no aneurysm or atherosclerosis. No free fluid, intraperitoneal air or significant lymphadenopathy. GI tract: Normal noncontrast imaging of the stomach, small bowel and colon. No obstruction or wall th ickening. Prior appendectomy. Moderate distal colonic constipation. Abdominal wall: Negative. No hernia. Pelvis: Normal midline uterus. Prominent varicosities greatest on the LEFT. Osseous structures: Unremarkable. CT/CT abdomen pelvis wo con [id number] IMPRESSION: 1. No renal obstruction or ascites. 2. Prior appendectomy. 3. Moderate constipation distal colon.
[2024-03-03 10:54] LABS: Add Urine Culture? No; Bacteria Urine TRACE /hpf; Mucus Urine 2+ /hpf; Oval Fat Bodies Urine 1+ /hpf; RBC Urine 0-4 /hpf (0-2); Squamous Epithelial Cell Urine 15-25 /hpf (0-5)
[2024-03-03 11:00] VITALS: BP 102/63; PULSE 52; O2SAT 98
[2024-03-03 11:30] VITALS: BP 92/62; PULSE 65; O2SAT 100
[2024-03-03 12:09] VITALS: BP 112/82; PULSE 65; O2SAT 100
== END 2024-03-03 12:10 | disposition home or self-care (01) ==
PROVIDERS: Emergency Medicine; Emergency Provider Family Medicine; PCP Family Medicine
DX: R10.2 Pelvic and perineal pain (principal)
CPT/HCPCS: 36415; 74176; 80053; 81001; 83690; 84703; 85025; 99284

== ENCOUNTER → 2024-12-22 17:48 | Outpatient (BNVA) | payer SELFPAY | PROVIDERS: PCP Family Medicine; Visit Provider Registered Nurse Neonatal Intensive Care | DX: M25.531 Pain in right wrist (principal) | CPT/HCPCS: 73110 ==

== ENCOUNTER 2025-06-07 20:36 | Emergency (ER) | payer SELFPAY ==
--- OUTSIDE RECORDS SUMMARY | 2025-06-07 20:41 | XMS_ITS | Clinical Summary ---
Author Organization [facility] Address [address] [phone] Phone Care Team Providers Care Metalizer Field Operation Name Role Phone Unavailable Primary Care Provider Unavailabl e Allergies No known active allergies Medications dicyclomine (BENTYL) 10 mg capsule Take 1 Capsule (10 mg) by mouth 3 times daily for 5 days. 15 Capsule 05/17/2025 05/22/20 cefdinir (OMNICEF) 300 mg capsule Take 1 Capsule (300 mg) by mouth every 12 hours for 7 days. 14 Capsule 05/17/2025 05/24/20 25 Active Problems Problem Noted Date Diagnosed Date Ruptured ovarian cyst 05/17/2025 Acute cystitis without hematuria 05/17/2025 Thrombosed external hemorrhoid 06/25/2023 35 weeks gestation of 06/25/2023 Leakage of amniotic fluid 06/25/2023 Uterine contractions during 06/25/2023 Encounters Date Type Department Care Team Description 05/31/2025 External Device Data [facility] ABSTRACTION Provider, Abstract 05/24/2025 External Device Data [facility] ABSTRACTION Provider, Abstract 05/23/2025 External Device Data [facility] ABSTRACTION Provider, Abstract 05/23/2025 External Device Data [facility] ABSTRACTION Provider, Abstract 05/19/2025 Results Follow-Up [facility] Emergency Medicine [address] [place] [phone] Malena Lawson RN URINE CULTURE 05/17/2025 12:27 PM CDT - 05/17/2025 2:59 PM CDT Emergency [facility] Emergency Medicine [address] [phone] Leonard Urrutia MD Ruptured ovarian cyst (Primary Dx); Acute cystitis without hematuria Discharge Disposition: Home or Self Care 05/17/2025 Travel from Last 3 Months Social History Tobacco Use Types Packs/Day Years Used Date Smoking Tobacco: Former Cigarettes Smokeless Tobacco: Never Tobacco Cessation:Counseling Given: Not Answered Alcohol Use Standard Drinks/Week Comments Never 0 (1 standard drink = 0.6 oz pur e alcohol) Feeling Safe Answer Date Recorded Are you in a relationship wi th someone who hurts you emotionally and/or physically? 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 Gender Identity Not on file Sexual Orientation Not on file Last Filed Vital Signs Vital Sign Reading Time Taken Comments Blood Pressure 95/75 05/17/2025 2:00 PM CDT Pulse 60 05/17/2025 2:00 PM CDT Temperature 36.1 C (96.9 F) 05/17/2025 12:28 PM CDT Respiratory Rate 16 05/17/2025 2:00 PM CDT Oxygen Saturation 99% 05/17/2025 2:00 PM CDT Inhaled Oxygen Concentration - - Weight 62 kg (136 lb 9.6 oz) 05/17/2025 12:28 PM CDT Height 152.4 cm (5') 05/17/2025 12:28 PM CDT Body Mass Index 26.68 05/17/2025 12:28 PM CDT Plan of Treatment Health Maintenance Due Date Last Done Comments HPV VACCINES (1 - 3-dose series) 02/17/2016 HEPATITIS B VACCINES (1 of 3 - 19+ 3-dose series) 02/17/2020 CERVICAL CANCER SCREENING 2022 HPV/Cotest (21-29) 2022 PAP SMEAR 2022 INFLUENZA VACCINE (#1) 2025 DTAP/TDAP/TD VACCINES (3 - Td or Tdap) 04/07/2033, 11/27/2021 Procedures Procedure Name Priority Date/Time Associated Diagnosis Comments US PELVIC TRANSVAGINAL Stat 05/17/2025 1:50 PM CDT URINALYSIS MICROSCOPY ONLY Stat 05/17/2025 12:34 PM CDT HCG QUALITATIVE, URINE Stat 05/17/2025 12:34 PM CDT URINALYSIS W/REFLEX MICROSCOPIC Stat 05/17/2025 12:34 PM CDT URINE CULTURE Stat 05/17/2025 12:34 PM CDT from Last 3 Months Results * US PELVIC TRANSVAGINAL (05/17/2025 1:50 PM CDT) Anatomical Region Laterality Modality Pelvis Ultrasound 05/17/2025 1:50 PM CDT Impressions 05/17/2025 2:27 PM CDT IMPRESSION: Please see below. US PELVIC TRANSVAGINAL, 05/17/2025 1:50 PM Reason For Exam: Ovarian Cyst;Other - Please see comments. Diagnosis: See Reason for Exam. COMPARISON: None TECHNIQUE: Multiplanar real-time ultrasonography of the pelvis using platt-scale imaging, supplemented by color Doppler as needed. FINDINGS: . Uterus: 3.64 x 8.90 x 4.98 cm. The endometrium measures 7.1 mm in thickness. No uterine mass. Small nabothian cysts. . Right Ovary: 1.54 x 3.29 x 2.79 cm. Small follicles. Normal color flow. No adnexal mass. . Left Ovary: 1.85 x 3.02 x 3040 cm. Normal color flow. 1.4 cm collapsing corpus luteum cyst. . Bladder: Normal . Peritoneum: Trace volume of free fluid in the cul-de-sac. +++++++++++++++++++++ IMPRESSION: No acute pelvic findings. Trace volume of free fluid within physiologic limits. Narrative Procedure Note Cesario Vyas MD - 05/17/2025 IMPRESSION: Please see below. US PELVIC TRANSVAGINAL, 05/17/2025 1:50 PM Reason For Exam: Ovarian Cyst;Other - Please see comments. Diagnosis: See Reason for Exam. COMPARISON: None TECHNIQUE: Multiplanar real-time ultrasonography of the pelvis using platt-scale imaging, supplemented by color Doppler as needed. FINDINGS: . Uterus: 3.64 x 8.90 x 4.98 cm. The endometrium measures 7.1 mm in thickness. No uterine mass. Small nabothian cysts. . Right Ovary: 1.54 x 3.29 x 2.79 cm. Small follicles. Normal color flow. No adnexal mass. . Left Ovary: 1.85 x 3.02 x 3040 cm. Normal color flow. 1.4 cm collapsing corpus luteum cyst. . Bladder: Normal . Peritoneum: Trace volume of free fluid in the cul-de-sac. +++++++++++++++++++++ IMPRESSION: No acute pelvic findings. Trace volume of free fluid within physiologic limits. us Leonard Urrutia MD US ORDERABLES Final Result * (ABNORMAL) URINALYSIS MICROSCOPY ONLY (05/17/2025 12:34 PM CDT) WBC UA 3-5(A) 0 - 2 /hpf 05/17/2025 1:39 PM CDT [facility] RBC UA 0-2 0 - 2 /hpf 05/17/2025 1:39 PM CDT [facility] BACTERIA UA 1+(A) Negative /hpf 05/17/2025 1:39 PM CDT [facility] EPITHELIAL CELLS, URINE 6-10(A) 0 - 5 /hpf 05/17/2025 1:39 PM CDT [facility] Urine URINE SPECIMEN OBTAINED BY CLEAN CATCH PROCEDURE / Unknown Collection / Unknown 05/17/2025 12:34 PM CDT 05/17/2025 1:21 PM CDT us Leonard Urrutia MD URINE ORDERABLES Final Result [facility] CLIA # [id number] [address] [place] [id number] * (ABNORMAL) URINALYSIS WITH REFLEX MICROSCOPIC (05/17/2025 12:34 PM CDT) COLOR UA Yellow Pale to Dark Yellow 05/17/2025 1:39 PM CDT [facility] CLARITY UA Slightly Cloudy(A) Clear 05/17/2025 1:39 PM CDT [facility] SPECIFIC GRAVITY UA 1.020 1.003 - 1.035 05/17/2025 1:39 PM CDT [facility] PH UA 8.0 5.0 - 8.0 05/17/2025 1:39 PM CDT [facility] LEUKOCYTE ESTERASE UA Trace(A) Negative 05/17/2025 1:39 PM CDT [facility] NITRITE UA Negative Negative 05/17/2025 1:39 PM CDT [facility] PROTEIN UA 1+(A) Negative 05/17/2025 1:39 PM CDT [facility] GLUCOSE UA Negative Negative 05/17/2025 1:39 PM CDT [facility] KETONES UA Trace(A) Negative 05/17/2025 1:39 PM CDT [facility] UROBILINOGEN UA 1.0 <2.0 mg/dL 1:39 PM CDT [facility] BILIRUBIN UA Negative Negative 05/17/2025 1:39 PM CDT [facility] BLOOD UA Negative Negative 05/17/2025 1:39 PM CDT [facility] Urine URINE SPECIMEN OBTAINED BY CLEAN CATCH PROCEDURE / Unknown Collection / Unknown 05/17/2025 12:34 PM CDT 05/17/2025 1:21 PM CDT us Leonard Urrutia MD URINE ORDERABLES Final Result [facility] CLIA # [id number] [address] [place] [id number] * URINE CULTURE (05/17/2025 12:34 PM CDT) CULTURE Polymicrobial growth consistent with normal urethral gaye and/or colonizing bacteria 05/19/2025 11:01 AM CDT [facility] Urine URINE SPECIMEN OBTAINED BY CLEAN CATCH PROCEDURE / Unknown Collection / Unknown 05/17/2025 12:34 PM CDT 05/17/2025 1:58 PM CDT Leonard Urrutia MD MICROBIOLOGY - GENERAL ORDERABL ES Final Result Performing Organization Address [facility]/ZIP Co de Phone Number [facility] CLIA # [id number] [address] [address] [place] [address] * (ABNORMAL) HCG QUALITATIVE, URINE (05/17/2025 12:34 PM CDT) HCG QUAL URINE Negative Negative 05/17/2025 1:29 PM CDT [facility] COLOR UA Yellow Pale to Dark Yellow 05/17/2025 1:29 PM CDT [facility] CLARITY UA Slightly Cloudy(A) Clear 05/17/2025 1:29 PM CDT [facility] Urine URINE SPECIMEN OBTAINED BY CLEAN CATCH PROCEDURE / Unknown Collection / Unknown 05/17/2025 12:34 PM CDT 05/17/2025 1:21 PM CDT Leonard Urrutia MD URINE ORDERABLES Final Result [facility] CLIA # [id number] [address] [facility] [address] [place] [address] from Last 3 Months
--- OUTSIDE RECORDS SUMMARY | 2025-06-07 20:41 | XMS_ITS | Encounter Summary ---
Author Organization [facility] Address [address] [place] [address] Care Team Providers Care Deck Cadet Name Role Phone Unavailable Primary Care Provider Unavailabl e Encounter Details Date Type Department Care Team (Late st Contact Info) Description 05/19/2025 Results Follow-Up [facility] Emergency Medicine [address] [place] [phone] Malena Lawson, RN URINE CULTURE Social History Tobacco Use Types Packs/Day Years Used Date Smoking Tobacco: Former Cigarettes Smokeless Tobacco: Never Alcohol Use Standard Drinks/Week Comments Never 0 (1 standard drink = 0.6 oz pur e alcohol) Feeling Safe Answer Date Recorded Are you in a relationship wi th someone who hurts you emotionally and/or physically? 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
--- OUTSIDE RECORDS SUMMARY | 2025-06-07 20:41 | XMS_ITS | Encounter Summary ---
Author Organization [facility] Address 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
[2025-06-07 20:49] VITALS: BP 101/62; PULSE 76; RESP 14; TEMP 36.8; O2SAT 97; BMI 26.5
[2025-06-07 21:01] LABS: Hematocrit 36.8 % (36-47); Hemoglobin 12.40 g/dL (11.27-16.99); Mean Corpuscular HGB Conc 33.7 g/dL (30-55); Mean Corpuscular Hemoglobin 28.6 pg (27-33); Mean Corpuscular Volume 85.0 fl (85-98); Nucleated Red Blood Cells % 0 %; Platelet Count 262 10^3/cmm (157-399); Red Blood Count 4.33 10^6/uL (3.85-5.65); White Blood Count 9.68 10^3/uL (3.29-11.43)
[2025-06-07 21:13] LABS: HCG, Serum Qual Negative (Negative)
--- NOTE | 2025-06-07 21:13 | W.ED.ABDPA2 ---
HPI - Abdominal Pain General: Chief Complaint: Abdominal Pain Stated Complaint: Fever, N/V, pain lower abd Time Seen by Provider: 06/07/25 20:40 Source: patient Mode of arrival: ambulatory Limitations: no limitations History of Present Illness: Patient is a 25-year-old female who presents the emergency department complaining of multiple symptoms for the past 2 days. She is reporting fevers that have been occurring intermittently, as well as intermittent diffuse abdominal pain. Has been endorsing nausea and vomiting, states her work center due to her reported symptoms. No diarrhea, no constipation. Denies any sick contact exposure. Reports a history of appendectomy as well as tubal ligation. No vaginal bleeding or discharge. States her appetite has been fluctuating, has not been eating or drinking as much today. States at this time she is not symptomatic, her vitals are stable. MD elicited complaint: abdominal pain Onset (ago): day(s) (3) Pain Consistency: intermittent Location: Diffuse Severity: moderate Quality: cramping Associated Symptoms: Reports fever(s), nausea and vomiting; Denies bloating, change in stool character, chills, constipation, diarrhea, dysuria and hematochezia Related Data Previous Rx's ?Medication ?Instructions ?Recorded ondansetron 4 mg disintegrating 4 mg PO TID PRN nausea and 06/07/25 tablet vomiting #30 tabs sulfamethoxazole 800 1 tab PO BID 7 days #14 tabs 06/07/25 mg-trimethoprim 160 mg tablet (Bactrim DS) Allergies Allergy/AdvReac Type Severity Reaction Status Date / Time No Known Allergies Allergy Verified 06/07/25 20:54 Review of Systems General: Reports: 10 or more systems reviewed and unremarkable except in HPI and below Const: Reports: fever(s) and change in appetite; Denies: chills, change in weight or diaphoresis ENMT: Denies: throat pain or hoarseness Card: Denies: chest pain, palpitations or lightheadedness Resp: Denies: dyspnea, productive cough or wheezing GI: Reports: abdominal pain, nausea and vomiting; Denies: diarrhea, constipation, bloating, change in stool character or hematochezia : Denies: flank pain, difficulty voiding, dysuria, urinary frequency or urinary urgency Musc: Denies: neck pain or back pain Skin/Breast: Denies: rash or new lesions Neuro: Denies: headache(s) or dizziness [facility] ED PFSH: Social History Smoking and tobacco/nicotine status: current every day tobacco/nicotine user Physical Exam Const: COMMON NORMALS: no acute distress, average body habitus, patient oriented x3, no limitations, healthy appearing, alert and well nourished GENERAL APPEARANCE: cooperative and comfortable ORIENTATION/CONSCIOUSNESS: Yes awake OTHER: Nontoxic-appearing Neck/C-Spine: COMMON NORMALS: full ROM, supple, no meningeal signs and no JVD Resp: COMMON NORMALS: normal respiratory effort, No retractions, No use of accessory muscles and clear to auscultation bilaterally AUSCULTATION: clear to auscultation bilaterally, no crackles, no rales, no rhonchi and no wheezes Cardio: COMMON NORMALS: no JVD, regular rate, regular rhythm, S1 normal heart sound present, S2 normal heart sound present, No gallops present (Cardio), No clicks present (Cardio), No murmurs present (Cardio), No rub (Cardio) and Peripheral pulses 2+ throughout RATE: regular rate RHYTHM: regular rhythm HEART SOUNDS: S1 normal heart sound present and S2 normal heart sound present PERIPHERAL PULSES: Peripheral pulses 2+ throughout GI: COMMON NORMALS: Normal to inspection, nondistended, normoactive bowel sounds present, Soft to palpation, No hepatosplenomegaly present and no masses AUSCULTATION: Yes normoactive bowel sounds PALPATION: Yes Soft to palpation, Yes Tenderness to palpation present (GI) (Diffuse nonspecific tenderness to palpation), No Guarding due to palpation present (GI), No Rigid due to palpation and Yes No hepatosplenomegaly present RECTAL EXAM: deferred : COMMON NORMALS: Yes no CVA tenderness BLADDER/KIDNEY EXAM: Yes no CVA tenderness Back/Pelvis: COMMON NORMALS: no CVA tenderness Extremity: COMMON NORMALS: normal to inspection and full ROM Neuro: COMMON NORMALS: patient oriented x3, moves all extremities, no focal motor deficits and no sensory deficits noted SENSORIUM/ORIENTATION: Yes alert MENINGEAL SIGNS: Yes no meningeal signs Psych: COMMON NORMALS: mental status grossly normal, cooperative and speech normal SPEECH: Yes normal speech Skin: COMMON NORMALS: no rashes or lesions noted GENERAL SKIN EXAM: no rashes or lesions noted Course Vital Signs: Vital signs: Vital Signs Temperature 98.2 F 06/07/25 20:49 Pulse Rate 76 06/07/25 20:49 Respiratory Rate 14 06/07/25 20:49 Blood Pressure 101/62 06/07/25 20:49 Pulse Oximetry 97 06/07/25 20:49 Oxygen Delivery Me thod Room Air 06/07/25 20:49 MDM - Abdominal Pain Medical Decision Making Patient presenting with fever, nausea vomiting, abdominal pain. Nontoxic-appearing on exam, diffuse nonspecific tenderness to the abdomen on palpation. No pertinent past medical history to report, did have a history of appendectomy and tubal ligation. All of her blood work was unremarkable which included CBC, CMP, lipase. Urinalysis showing evidence of urinary tract infection which could explain her symptoms, and will be treated with Bactrim. Overall I do not feel CT of the abdomen pelvis is warranted at this time with her remaining stable, and mostly asymptomatic here in the emergency department. Vitals have also been stable and we will treat for the UTI and have her follow-up with primary care for routine reevaluation. Patient agrees with this plan. Lab Data 06/07/25 20:46 06/07/25 20:46 Labs/Radiology: Laboratory Results WBC 9.68 10^3/uL (3.29-11.43) 06/07/25 20:46 RBC 4.33 10^6/uL (3.85-5.65) 06/07/25 20:46 Hgb 12.40 g/dL (11.27-16.99) 06/07/25 20:46 Hct 36.8 % (36-47) 06/07/25 20:46 MCV 85.0 fl (85-98) 06/07/25 20:46 MCH 28.6 pg (27-33) 06/07/25 20:46 MCHC 33.7 g/dL (30-55) 06/07/25 20:46 RDW 13.1 % (12.1-15.1) 06/07/25 20:46 Plt Count 262 10^3/cmm (157-399) 06/07/25 20:46 MPV 9.8 fL (7.4-10.4) 06/07/25 20:46 Neut % (Auto) 71.0 % 06/07/25 20:46 Lymph % (Auto) 19.0 % 06/07/25 20:46 [place] % (Auto) 9.1 % 06/07/25 20:46 Eos % (Auto) 0.3 % 06/07/25 20:46 Baso % (Auto) 0.3 % 06/07/25 20:46 Neut # (Auto) 6.87 10^3/uL (1.8-7.7) 06/07/25 20:46 Lymph # (Auto) 1.8 10^3/uL (0.8-4.8) 06/07/25 20:46 [place] # (Auto) 0.9 10^3/uL (0.2-0.9) 06/07/25 20:46 Eos # (Auto) 0.0 10^3/uL (0.0-0.8) 06/07/25 20:46 Baso # (Auto) 0.0 10^3/uL (0.0-0.1) 06/07/25 20:46 Nucleated RBC % (auto) 0 % 06/07/25 20:46 Nucleated RBCs # 0.0 /100WBC 06/07/25 20:46 Sodium 138 mmol/L (136-145) 06/07/25 20:46 Potassium 3.5 mmol/L (3.5-5.1) 06/07/25 20:46 Chloride 106 mmol/L (98-107) 06/07/25 20:46 Carbon Dioxide 22 mmol/L (22-29) 06/07/25 20:46 Anion Gap 13.5 (5-19) 06/07/25 20:46 BUN 9 mg/dL (6-20) 06/07/25 20:46 Creatinine 0.6 mg/dL (0.5-0.9) 06/07/25 20:46 GFR Calculation 122.8 mL/min (90-130) 06/07/25 20:46 Glucose 118 mg/dL (65-115) H 06/07/25 20:46 Calculated Osmolality 286 mOsm/kg (285-295) 06/07/25 20:46 Calcium 9.8 mg/dL (8.5-10.5) 06/07/25 20:46 Total Bilirubin 0.4 mg/dL (0.15-1.2) 06/07/25 20:46 AST 11 U/L (0-32) 06/07/25 20:46 ALT 12 U/L (0-33) 06/07/25 20:46 Alkaline Phosphatase 91 U/L (35-105) 06/07/25 20:46 Total Protein 7.6 g/dL (6.6-8.7) 06/07/25 20:46 Albumin 4.3 g/dL (3.5-5.2) 06/07/25 20:46 Globulin 3.3 g/dL (1.3-4.6) 06/07/25 20:46 Lipase 23 U/L (13-60) 06/07/25 20:46 HCG, Qual Negative (Negative) 06/07/25 20:46 Urine Color Yellow (Yellow) 06/07/25 21:00 Urine Appearance Turbid (CLEAR) A 06/07/25 21:00 Urine pH 7.5 (5-7) 06/07/25 21:00 Ur Specific [place] 1.020 (1.005-1.030) 06/07/25 21:00 Urine Protein Negative (Negative) 06/07/25 21:00 Urine Glucose (UA) Negative (Normal) 06/07/25 21:00 Urine Ketones Trace (Negative) 06/07/25 21:00 Urine Blood Negative (Negative) 06/07/25 21:00 Urine Nitrate Negative (Negative) 06/07/25 21:00 Urine Bilirubin Negative (Negative) 06/07/25 21:00 Urine Urobilinogen 1.0 mg/dL (Negative) 06/07/25 21:00 Ur Leukocyte Esterase 1+ (Negative) A 06/07/25 21:00 Urine RBC 0-2 /hpf (0-2) 06/07/25 21:00 Urine WBC 11-20 /hpf (0-5) H 06/07/25 21:00 Ur Squamous Epith Cells 11-20 /hpf (0-5) H 06/07/25 21:00 Amorphous Sediment Not Reportable 06/07/25 21:00 Urine Bacteria 1+ /hpf (NONE) H 06/07/25 21:00 Hyaline Casts 1.65 /lpf 06/07/25 21:00 Influenza A (PCR) Negative (Negative) 06/07/25 21:18 Influenza Type B (PCR) Negative (Negative) 09/10/25 21:18 RSV (PCR) Negative (Negative) 06/07/25 21:18 SARS-CoV-2 (PCR) Negative (Negative) 06/07/25 21:18 No radiology studies performed this visit Discharge Plan Discharge Patient Disposition: Home Clinical Impression: Urinary tract infection Qualifiers: Urinary tract infection type: acute cystitis Hematuria presence: without hematuria Qualified Code(s): N30.00 - Acute cystitis without hematuria Condition: Stable Prescriptions: New sulfamethoxazole-trimethoprim [Bactrim DS] 800-160 mg tablet 1 tab PO BID 7 Days Qty: 14 0RF ondansetron 4 mg tablet,disintegrating 4 mg PO TID PRN (Reason: nausea and vomiting) Qty: 30 0RF Discharge Orders: Discharge ED (Routine); Ordered 06/07/25 Ordered By: Vicente Alvarez Referrals: Charlie Briscoe MD [Primary Care Provider, [facility]] Patient Instructions: Patient Portal & [place] Instructions Activity Restrictions/Additional Instructions: UTI Discharge Instructions Diagnosis: Acute uncomplicated urinary tract infection (cystitis). Medications: - Trimethoprim-sulfamethoxazole (Bactrim): 160/800 mg (one double-strength tablet) orally twice daily for 7 days. - Ondansetron 4 mg orally disintegrating tablet: As needed for nausea. Instructions: - Antibiotic Therapy: - Take Bactrim exactly as prescribed, even if symptoms improve before the course is finished. Early discontinuation or missed doses may reduce treatment efficacy and increase the risk of bacterial resistance.[1]https://dailymed.[employer].nih.gov/dailymed/drugInfo.cfm?pqzrm=[email or web address]-v2f0-[id number] - Maintain adequate fluid intake throughout therapy to reduce the risk of crystalluria and renal stone formation.[1]https://dailymed.[employer].nih.gov/dailymed/drugInfo.cfm?dwjxq=[id number]-l2g0-[id number] - Bactrim is indicated for bacterial infections only; it will not treat viral illnesses.[1]https://dailymed.[employer].nih.gov/dailymed/drugInfo.cfm?pzfgb=o156ie0l-3pn0-l6k2-j667-3337x13a3s75 - Do not use Bactrim if there is a known allergy to sulfa drugs. - Ondansetron for Nausea: - Use ondansetron 4 mg orally disintegrating tablet as needed for nausea. Do not exceed the maximum recommended daily dose. - Expected Course: - Most patients experience rapid symptom improvement within 24?48 hours of starting antibiotics.[2]https://www.nejm.org/doi/full/10.1056/RYLSvn8798979 - If symptoms persist beyond 72 hours, worsen, or if new symptoms such as fever, flank pain, or vomiting develop, seek medical attention promptly.[2]https://www.nejm.org/doi/full/10.1056/JAIWxa0463775[3]https://pubmed.ncbi.nlm.nih.gov/00457308 - Adverse Effects and Monitoring: - Common side effects of Bactrim include rash, urticaria, abdominal pain, and nausea/vomiting. Hypersensitivity reactions and acute renal failure are rare but more frequent compared to nitrofurantoin.[4]https://pubmed.ncbi.nlm.nih.gov/73664456 - Diarrhea is a common antibiotic-related side effect and usually resolves after discontinuation. However, if watery or bloody stools occur, especially with fever or abdominal pain, contact a healthcare provider immediately.[1]https://[employer].nih.gov/dailymed/drugInfo.cfm?orjka=[id number]-n3v8-[id number] - If any signs of severe allergic reaction (e.g., difficulty breathing, swelling of face/lips/tongue, severe rash) occur, discontinue medication and seek emergency care. - Routine laboratory monitoring is not required for healthy young women, but those with underlying renal impairment or on interacting medications may require closer follow-up.[1]https://dailymed.[employer].nih.gov/dailymed/drugInfo.cfm?emgbl=z984um6d-0nq8-b2d9-b264-6430y01o2j61[5]https://[employer].nih.gov/dailymed/drugInfo.cfm?setid=[id number]-x7o0-fl00233owg42 - Prevention and Self-Care: - [place] fluid intake and urination after intercourse may reduce recurrence risk, though evidence is limited.[2]https://www.nejm.org/doi/full/10.1056/GLZMsu7878309 - Avoid spermicides if recurrent UTIs are a concern.[2]https://www.nejm.org/doi/full/10.1056/CTYLpi0515065 - Follow-Up: - No routine follow-up or urine culture is needed if symptoms resolve.[2]https://www.nejm.org/doi/full/10.1056/WRREjg5207099 - If recurrent UTIs occur, further evaluation and consideration of self-start therapy or prophylaxis may be warranted.[2]https://www.nejm.org/doi/full/10.1056/PPONhu2603385[6]https://doi.org/10.1097/SPV.0380217897624763 When to Seek Medical Attention: - Persistent or worsening symptoms after 72 hours of antibiotics. - New onset fever, chills, flank pain, or vomiting. - Signs of severe allergic reaction or severe diarrhea. Additional Notes: - Inform providers of all current medications to avoid drug interactions (e.g., warfarin, DANISH inhibitors, diuretics).[1]https://[employer].nih.gov/dailymed/drugInfo.cfm?hqgwb=d993pp2w-7mr4-z0d6-l378-3823l28h9d64[5]https://dailymed.[employer].nih.gov/dailymed/drugInfo.cfm?setid=[email or web address]-j1t5-kk85751oop04 - Complete the full course of antibiotics to minimize resistance and recurrence risk.[7]https://jamanetwork.com/journals/elias/fullarticle/10.1001/elias.2014.96871?utm_source=openevidence&utm_medium=referral[1]https://dailymed.[employer].nih.gov/dailymed/drugInfo.cfm?ftgmn=j798jn5k-7ah8-b6q1-b023-4878m98e5z65[6]https://doi.org/10.1097/SP V.5720919608414541 References SULFATRIMhttps://dailymed.[employer].nih.gov/dailymed/drugInfo.cfm?vfqfd=s567xh3x-9cw6-u9h1-c808-8110p22t6z19. Food and Drug Administration. Updated date: 2024-04-20. Uncomplicated Urinary Tract Infectionhttps://www.ne.org/doi/full/10.1056/RDJDpx0856076. Trinidad TM. The [place] Journal of Medicine. 2012;366(11):1028-37. doi:10.1056/PMOQcz5080947. Diagnosis and Treatment of Urinary Tract Infections?across Age Groupshttps://pubmed.ncbi.nlm.nih.gov/06626708. Kd CABALLERO, Gamal RAMAN. [place] Journal of Obstetrics and Gynecology. 2018;219(1):40-51. doi:10.1016/j.ajog.2017.12.231. Association of Adverse Events With Antibiotic Treatment for Urinary Tract Infectionhttps://pubmed.ncbi.nlm.nih.gov/51230960. Bere AM, Ramonita MJ, Sampson MR, et al. Clinical Infectious Diseases : An Official Publication of the Infectious Diseases Society of [place]. 2021;74(8):8040-5035. doi:10.1093/keila/wphl060. Bactrimhttps://dailymed.[employer].nih.gov/dailymed/drugInfo.cfm?setid=q63c7q61-5y14-9h89-y7n1-xq24870pbd34. Food and Drug Administration. Updated date: 2024-09-26. [place] Urogynec[employer] Society Best-Practice Statement: Recurrent Urinary Tract Infection in Adult Womenhttps://doi.org/10.1097/SPV.9652560411896428. Kev Glass, Kathrin Stephens, Inna R, Kamilah Stephens, Gamal RAMAN. Female Pelvic Medicine & Reconstructive Surgery. 2018 ;24(5):321-335. doi:10.1097/SPV.5460546114863135. Diagnosis and Management of Urinary Tract Infections in the Outpatient Setting: A Reviewhttps://jamanetwork.com/journals/elias/fullarticle/10.1001/elias.2014.25239?utm_source=openevidence&utm_medium=referral. Tawanna Glass, Vince BW, Filipe K. ELIAS. 2014 Jul 19;312(16):1677-84. doi:10.1001/elias.2014.58064. Stand Alone Forms: Work/School Release Print Language: Maori Coding Level of Care Code ED Reading Professor for Clayton Mcknight
[2025-06-07 21:15] LABS: Glucose Urine UA Negative (Normal); Nitrate Urine Negative (Negative); Specific Gravity, Urine 1.020 (1.005-1.030)
[2025-06-07 21:16] LABS: Alanine Aminotransferase 12 U/L (0-33); Albumin Level 4.3 g/dL (3.5-5.2); Alkaline Phosphatase 91 U/L (35-105); Anion Gap 13.5 (5-19); Aspartate Amino Transferase 11 U/L (0-32); Blood Urea Nitrogen 9 mg/dL (6-20); Calcium 9.8 mg/dL (8.5-10.5); Carbon Dioxide 22 mmol/L (22-29); Chloride 106 mmol/L (98-107); Creatinine Clr Calc Pharmacy 118.6295; Globulin 3.3 g/dL (1.3-4.6); Glucose 118 mg/dL (65-115); Lipase 23 U/L (13-60); Osmolality Calculated 286 mOsm/kg (285-295); Potassium 3.5 mmol/L (3.5-5.1); Sodium 138 mmol/L (136-145); Total Protein 7.6 g/dL (6.6-8.7)
[2025-06-07 21:20] LABS: Add Urine Microscopic? YES
[2025-06-07 22:03] LABS: Respiratory Syncytial Virus Ce NEGATIVE (Negative); SARS-CoV-2 PCR NEGATIVE (Negative)
[2025-06-07] MEDS: sulfamethoxazole-trimeth DS 160-800 mg Tablet 1 TAB PO (22:17)
== END 2025-06-07 22:20 | disposition home or self-care (01) ==
PROVIDERS: Emergency Medicine; Emergency Provider Physician Assistant; PCP Family Medicine
DX: N30.00 Acute cystitis without hematuria (principal)
CPT/HCPCS: 80053; 81001; 83690; 84703; 85025; 87637; 99283; J9999

== ENCOUNTER 2025-07-15 22:09 | Emergency (ER) | payer SELFPAY ==
[2025-07-15 22:12] VITALS: BP 100/62; PULSE 95; RESP 16; TEMP 36.8; O2SAT 98; BMI 25.4
--- OUTSIDE RECORDS SUMMARY | 2025-07-15 22:13 | XMS_ITS | Encounter Summary ---
Author Organization [facility] Address 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
--- OUTSIDE RECORDS SUMMARY | 2025-07-15 22:13 | XMS_ITS | Encounter Summary ---
Author Organization [facility] Address 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
--- OUTSIDE RECORDS SUMMARY | 2025-07-15 22:13 | XMS_ITS | Encounter Summary ---
Author Organization [facility] Address 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
--- OUTSIDE RECORDS SUMMARY | 2025-07-15 22:13 | XMS_ITS | Clinical Summary ---
Author Organization [facility] Address [address] [place] [address] Phone Care Team Providers Care Steam Pipe Fitter Name Role Phone Unavailable Primary Care Provider Unavailabl e Allergies No known active allergies Medications No known medications Active Problems Problem Noted Date Diagnosed Date Ruptured ovarian cyst 05/17/2025 Acute cystitis without hematuria 05/17/2025 Thrombosed external hemorrhoid 06/25/2023 35 weeks gestation of 06/25/2023 Leakage of amniotic fluid 06/25/2023 Uterine contractions during 06/25/2023 Encounters Date Type Department Care Team Description 07/11/2025 External Device Data [facility] ABSTRACTION Provider, Abstract 07/11/2025 External Device Data [facility] ABSTRACTION Provider, Abstract 07/04/2025 External Device Data [facility] ABSTRACTION Provider, Abstract 06/14/2025 External Device Data [facility] ABSTRACTION Provider, Abstract 06/13/2025 External Device Data [facility] ABSTRACTION Provider, Abstract 06/13/2025 External Device Data [facility] ABSTRACTION Provider, Abstract 05/31/2025 External Device Data [facility] ABSTRACTION Provider, Abstract 05/24/2025 External Device Data [facility] ABSTRACTION Provider, Abstract 05/23/2025 External Device Data [facility] ABSTRACTION Provider, Abstract 05/23/2025 External Device Data [facility] ABSTRACTION Provider, Abstract 05/19/2025 Results Follow-Up [facility] Emergency Medicine [address] [place] [address] Malena Lawson RN URINE CULTURE 05/17/2025 12:27 PM CDT - 05/17/2025 2:59 PM CDT Emergency [facility] Emergency Medicine [address] [place] [address] Leonard Urrutia MD Ruptured ovarian cyst (Primary [...] on file 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 Gender Identity Not on file Sexual Orientation [...] - 2 /hpf 05/17/2025 1:39 PM CDT [facility] RBC UA 0-2 0 - 2 /hpf 05/17/2025 1:39 PM CDT [facility] BACTERIA UA 1+(A) Negative /hpf 05/17/2025 1:39 PM CDT [facility] EPITHELIAL CELLS, URINE 6-10(A) 0 - 5 /hpf 05/17/2025 1:39 PM CDT [facility] Urine URINE SPECIMEN OBTAINED BY CLEAN CATCH PROCEDURE / Unknown Collection / Unknown 05/17/2025 12:34 PM CDT 05/17/2025 1:21 PM CDT us Leonard Urrutia MD URINE ORDERABLES Final Result [facility] CLIA # [id number] [address] [place] [id number] * (ABNORMAL) URINALYSIS WITH REFLEX MICROSCOPIC (05/17/2025 12:34 PM CDT) COLOR UA Yellow Pale to Dark Yellow 05/17/2025 1:39 PM CDT [facility] CLARITY UA Slightly Cloudy(A) Clear 05/17/2025 1:39 PM CDT [facility] SPECIFIC GRAVITY UA 1.020 1.003 - 1.035 05/17/2025 1:39 PM CDT [facility] PH UA 8.0 5.0 - 8.0 05/17/2025 1:39 PM CDT [facility] LEUKOCYTE ESTERASE UA Trace(A) Negative 05/17/2025 1:39 PM CDT [facility] NITRITE UA Negative Negative 05/17/2025 1:39 PM CDT [facility] PROTEIN UA 1+(A) Negative 05/17/2025 1:39 PM T [facility] GLUCOSE UA Negative Negative 05/17/2025 1:39 PM CDT [facility] KETONES UA Trace(A) Negative 05/17/2025 1:39 PM CDT [facility] UROBILINOGEN UA 1.0 <2.0 mg/dL 1:39 PM CDT [facility] BILIRUBIN UA Negative Negative 05/17/2025 1:39 PM CDT [facility] BLOOD UA Negative Negative 05/17/2025 1:39 PM T [facility] Urine URINE SPECIMEN OBTAINED BY CLEAN CATCH PROCEDURE / Unknown Collection / Unknown 05/17/2025 12:34 PM CDT 05/17/2025 1:21 PM CDT Leonard Urrutia MD URINE ORDERABLES Final Result [facility] CLIA # [id number] [address] [place] [id number] * URINE CULTURE (05/17/2025 12:34 PM CDT) CULTURE Polymicrobial growth consistent with normal urethral gaye and/or colonizing bacteria 05/19/2025 11:01 AM CDT [facility] Urine URINE SPECIMEN OBTAINED BY CLEAN CATCH PROCEDURE / Unknown Collection / Unknown 05/17/2025 12:34 PM CDT 05/17/2025 1:58 PM CDT us Leonard Urrutia MD MICROBIOLOGY - GENERAL ORDERABL ES Final Result Performing Organization Address [facility]/ZIP Co de Phone Number [facility] CLIA # [id number] [address] * (ABNORMAL) HCG QUALITATIVE, URINE (05/17/2025 12:34 PM CDT) HCG QUAL URINE Negative Negative 05/17/2025 1:29 PM CDT [facility] COLOR UA Yellow Pale to Dark Yellow 05/17/2025 1:29 PM CDT [facility] CLARITY UA Slightly Cloudy(A) Clear 05/17/2025 1:29 PM CDT [facility] Urine URINE SPECIMEN OBTAINED BY CLEAN CATCH PROCEDURE / Unknown Collection / Unknown 05/17/2025 12:34 PM CDT 05/17/2025 1:21 PM CDT us Leonard Urrutia MD URINE ORDERABLES Final Result [facility] CLIA # [id number] [address] [place] [id number] from Last 3 Months
--- OUTSIDE RECORDS SUMMARY | 2025-07-15 22:13 | XMS_ITS | Data Portability ---
Author Organization [facility] - Umesh Quiñones [facility], [facility] Address [address] [address] Assessment No assessment recorded. Plan of Treatment Reminders Order Date Submit Date Provider Last Modified By Organization Details Last Modified Time Details Appointments None recorded. Lab test, urine [address] ([facility]), [address] [place] [address], [phone], 4 18:13:27 unlisted lab - sureswab(R) advanced vaginitis plus, tma 2023 024 [facility], [address] [place] [address], [facility] [address] [place], [address], 4 00:39:53 CT + NG RNA, PCR, unspecified specimen 2023 024 [facility], [address] [place] [address], dg [address], [place], [address], 4 00:39:51 Referral None recorded. Procedures None recorded. Surgeries None recorded. Imaging None recorded. Medication Orders None recorded. Patient TargetsNo targets recorded. Patient InstructionsNo instructions recorded. Reason for Referral None Reported. Results Created Date Observation Date Name Description Value Unit Range Abnormal Flag Note LastModifiedBy Organization Detail LastModifiedTime 12/29/19 24 12/28/2023 SHI CUBA/ N. GONOR RHOEA E RNA, TMA, THROA T chlamydia trachomatis RNA, tma, throat NOT DETECT ED not detect ed normal Not Available [facility] - [address], [address], 12/29/2023 00:39:51 12/29/19 24 12/28/2023 CHLAM YDIA/ N. GONOR RHOEA E RNA, TMA, THROA T neisseria gonorrhoeae RNA, tma, throat NOT DETECT ED not detect ed normal Not Available [facility] - [address] [address] [place], [address], 12/29/2023 00:39:51 12/29/19 24 12/28/2023 CHLAM YDIA/ N. GONOR RHOEA E RNA, TMA, THROA T comment The jerrica tical perfo rmanc e idalia cteri stics of this assay have been deter mined by [employer] [facility]. The modif icati ons have not been clear ed or appro benson by the FDA. This assay has been valid ated pursu ant to the CLIA regul ation s and is used for clini dmitri purpo ses. Not Available [facility] - [address], [address], 12/29/2023 00:39:51 12/29/19 24 12/29/2023 SURES WAB(R ) ADVAN NILS VAGIN ITIS PLUS, TMA sureswab(R) adv bacterial vaginosis (bv), tma POSITI VE negati ve abnormal Not Available [facility] - [place] [address] [place], [address], 12/29/2023 21:32:28 12/29/19 24 12/29/2023 SURES WAB(R ) ADVAN NILS VAGIN ITIS PLUS, TMA elisabeth species DETECT ED not detect ed abnormal Not Available [facility] - [address], [address], 12/29/2023 21:32:28 12/29/19 24 12/29/2023 SURES WAB(R ) ADVAN NILS VAGIN ITIS PLUS, TMA elisabeth glabrata NOT DETECT ED not detect ed normal Emmie da speci es C. albic ans, C. tropi calis , C. parap ben is, and/o r C. dubli rogers is can be detec laure, but not diffe renti ated, in the Emmie da spp. resul t. Not Available [place] [address] [address] [place], [address], 12/29/2023 21:32:28 12/29/19 24 12/29/2023 SURES WAB(R ) ADVAN NILS VAGIN ITIS PLUS, TMA trichomonas vaginalis (TV), tma NOT DETECT ED not detect ed normal Not Available [address] [place], [address], 12/29/2023 21:32:28 12/29/19 24 12/29/2023 SURES WAB(R ) ADVAN NILS VAGIN ITIS PLUS, TMA chlamydia trachomatis RNA, tma, urogenital NOT DETECT ED not detect ed normal Not Available [address] [address] [place], [address], 12/29/2023 21:32:28 12/29/19 24 12/29/2023 SURES WAB(R ) ADVAN NILS VAGIN ITIS PLUS, TMA neisseria gonorrhoeae RNA, tma, urogenital NOT DETECT ED not detect ed normal For addit ional infor selena lee refer to https ://ed ati on.qu estdi LiveRe. MakeMeReach/f aq/FA Q154 (This link is being provi ded for infor andrea araya/ ralph frias purpo ses only. ) NO COLLE CTION DATE RECEI BENSON. WE HAVE USED THE DATE THE SPECI MEN WAS RECEI BENSON BY THIS LABOR ATORY THE COLLE CTION DATE. IF THIS IS INCOR RECTSELENA CONTA CT CLIEN T SERVI DELIA. PHONE NUMBE R: [phone] Not Available [address], [address], 12/29/2023 21:32:28 03/02/20 24 03/02/2024 pregn frank test, urine HCG negati ve Not Available [facility] ([facility]) [address] [place] [address], [address], 03/02/2024 17:52:51 Result Notes None recorded. Problems Name Problem SNOMED Code Status Onset Date Resolution Date Notes Provider Name and Address Organization Details Recorded Time Blood group O Rh(D) negative 652477793 Active Charlie Briscoe MD [address] [place] [address], [phone], [facility] 3 10:49:57 79902946 Active 2022 KAMLESH ENRIQUE [facility], [facility] 3 09:46:34 Normal in multigravid a 1347049012053 06 Active 2022 Charlie Briscoe MD [address] [place] [address], [address], [facility] 3 10:49:57 Normal in multigravid a 9691191133195 06 Active 2022 Charlie Briscoe MD [address] [place] [address], [address], [facility] 3 10:49:57 Chlamydial infection 092083724 Active 2022 Charlie Briscoe MD [address] [place] [address], [phone], [facility] 3 10:49:57 Chlamydial infection 392663782 Active 2022 Charlie Briscoe MD [address] [place] [address], [phone], [facility] 10:49:57 Problem Notes None recorded. Procedures Surgical History Date Name Laterality Status Provider Name and Address Organization Details Recorded Time Tubal Ligation completed [facility]/08/[facility]23 10:24:22 Imaging Results None recorded. Procedure Notes None recorded. Medical Equipment None Reported. Allergies No known drug allergies Medications Name Sig Start Date Stop Date Status Note LastModified by Organization Details LastModified Time azithromy mikael 250 mg tablet TAKE 4 TABLETS BY MOUTH ONCE DAILY FOR A ONE TIME DOSE 09/08 completed Not Available Not Available Not Available ibuprofen 800 mg tablet TAKE 1 TABLET BY MOUTH THREE TIMES DAILY 09/08 completed Not Available Not Available Not Available fluconazo le 150 mg tablet TAKE 1 TABLET BY MOUTH ONCE DAILY FOR 1 DAY 03/02 completed Not Available Not Available Not Available hydrocodo ne 5 mg-acetam inophen 325 mg tablet TAKE 1 TABLET BY MOUTH EVERY 4 HOURS NEEDED FOR PAIN 09/08 completed Not Available Not Available Not Available metronida zole 500 mg tablet TAKE 1 TABLET BY MOUTH TWICE DAILY FOR 7 DAYS 03/02 completed Not Available Not Available Not Available Depo-Prov era 150 mg/mL intramusc ular suspensio n Q3 months 09/08 completed Recorded 03/14/20 22 11:30AM by Charlie Briscoe MD, Office Visit; Refill Quantity : 1; Millilit er; Not Available Not Available Not Available nifedipin e 10 mg capsule TAKE 1 CAPSULE BY MOUTH EVERY 4 HOURS NEEDED FOR CONTRACT IONS 09/08 completed Not Available Not Available Not Available docusate sodium 100 mg capsule TAKE 1 CAPSULE BY MOUTH TWICE DAILY NEEDED FOR CONSTIPA TION 09/08 completed Not Available Not Available Not Available ondansetr on 4 mg disintegr ating tablet DISSOLVE 1 TABLET ON TOP OF TONGUE THEN SWALLOW WITH SALIVA EVERY 6 HOURS NEEDED FOR NAUSEA/E MESIS 03/02 completed Not Available Not Available Not Available 1 qd 09/08 completed Not Available Not Available Not Available Vitamin QD 09/08 completed Recorded 08/29/20 21 7:58AM by Kamlesh Enrique RN, Office Visit; Refill Quantity : 90; Tablet; Not Available Not Available Not Available Procto-Me d HC 2.5 % topical cream perineal applicato r APPLY CREAM TOPICALL Y TO HEMORRHO IDS THREE TIMES DAILY 09/08 completed Not Available Not Available Not Available Vitals Date Recorded Body height Body mass index (BMI) Body weight Oxygen saturation Oxygen saturation in Arterial blood by Pulse oximetry Heart rate Respiratory rate Body temperature Systolic And Diastolic Provider Name and Address Organization Details Last Updated DateTime 4 156.21 cm 24.5 kg/m2 88359.7 6 g 99 % 99 % 63 /min 15 /min 97.1 [degF] 98/66 mm[Hg] [facility] 4 09:43:05 Date Recorded Body height Body mass index (BMI) Body weight Respiratory rate Oxygen saturation Oxygen saturation in Arterial blood by Pulse oximetry Heart rate Body temperature Systolic And Diastolic Provider Name and Address Organization Details Last Updated DateTime 4 156.21 cm 23.2 kg/m2 34871.3 3 g 10 /min 99 % 99 % 98 /min 98.2 [degF] 100/64 mm[Hg] Chivo Anand [facility] 4 17:48:42 Date Recorded Body height Body mass index (BMI) Body weight Oxygen saturation Oxygen saturation in Arterial blood by Pulse oximetry Heart rate Respiratory rate Body temperature Systolic And Diastolic Provider Name and Address Organization Details Last Updated DateTime 4 156.21 cm 23.9 kg/m2 37489.7 g 96 % 96 % 99 /min 16 /min 98.4 [degF] 110/66 mm[Hg] [facility] 4 18:03:58 Date Recorded Body height Body mass index (BMI) Body weight Body temperature Oxygen saturation Oxygen saturation in Arterial blood by Pulse oximetry Heart rate Systolic And Diastolic Provider Name and Address Organization Details Last Updated DateTime 3 156.21 cm 23.2 kg/m2 09537.0 5 g 97.1 [degF] 98 % 98 % 87 /min 126/72 mm[Hg] MONICA DENNIS [facility] 10:23:11 Social History Question Answer Notes LastModified by Organizat ion Details LastModified Time Tobacco Smoking Status Current Every Day Smoker Tresa scott, [facility] 03/02/2024 18:00:39 What Was The Date Of Your Most Recent Tobacco Screening? 03/02/2024 hpliler Information not available 03/02/2024 What Is Your Relationship Status? Information not available 01/06/2023 Sex: Unknown Functional Status Question Answer Note LastModified by Organizat ion Details LastModified Time Do you use any illicit or recreational drugs? No Information not available 01/06/2023 Do you or have you ever used any other forms of tobacco or nicotine? No Information not available 01/06/2023 What is your level of alcohol consumption? None Information not available 01/06/2023 Are you able to care for yourself independently? Yes Information not available 01/06/2023 Mental Status None recorded. Family History Nothing Reported Notes:Maternal Grandfather: Diabetes, Hypertension, Stroke, Rheumatoid Arthritis Medical History Condition Response Coronary Artery Disease N Other N Gout N Kidney Stones N Blood Diseases N Hyperthyroidism N Breast Cancer N Blood Transfusion N Depression N Hypothyroidism N Lung Disease N COPD N Developmental or Behavioral Disorders N Defects or Inherited Disease N Breast Problem N Difficulty Swallowing N Anesthesia Complications N Anxiety Disorder N Meniere's disease N Muscle, Joint, or Bone Problems N Vision or Eye Problems N Arthritis N Infertility N Polyps N Cancer N Stroke N Varicosities N Endometriosis N Bladder or Kidney Problems N High Cholesterol N Liver Disease N Fibromyalgia N Headaches N Kidney Disease N Allergies/Hayfever N Heart Problems N Ear or Hearing Problems N Hospitalizations N Thyroid Problems N GI Problems N ADD/ADHD N Skin Problems N Eating Disorder N Anemia N Constipation N Mental Illness N Ovarian Cancer N Diabetes N Bedwetting N Seizures/Epilepsy N Tuberculosis N Eczema N Diverticulitis N Abuse/Domestic Violence N Asthma N Reflux/GERD N Hepatitis N Heart Disease N Pulmonary Embolism N Pre-Eclampsia N Hypertension N Chronic Ear Infections N Osteoporosis N Chicken Pox N Autism Spectrum Disorder (ASD) N Thrombophilias N Gynecological History Statement/Question Response Date of LMP 09/29/2022 Obstetrics History GPAL:G 3 P 2 0 0 2 Type Value Full Term 2 Living 2 Total 3 Immunizations Vaccine Type Date Status Note Provider Nam e and Address Organization Details Recorded Time Tdap 04/07/2023 completed Tresa Pino [facility] 03/02/2024 18:00:16 Tdap 11/27/2021 completed Not Available [facility] 04/25/2023 02:32:45 Past Encounters Encounter ID Performer Location Encounter Start Date Encounter Closed Date Diagnosis/Indication Diagnosis SNOMED-CT Code Diagnosis ICD10 Code Diagnosis IMO Codes Diagnosis Note [id number] Charlie Briscoe MD [facility] ([facility]) [address] [place] [phone] 01/06/2023 09:22:40 01/13/2023 10:50:48 Normal in multigravida 2670636892 31896 Z36.87 Unsure of lmp. Check u/s to confirm dates. Gestation period, 14 weeks 55095784 Z3A.14 [id number] Charlie Briscoe MD [facility] ([facility]) [address] [place] [phone] 01/19/2023 09:40:39 01/19/2023 10:34:11 Normal in multigravida 4497564383 42555 Z36.87 Unsure of lmp. Check u/s to confirm dates. [id number] Charlie Briscoe MD [facility] ([facility]) [address] [place] [phone] 02/10/2023 10:30:52 02/10/2023 20:05:48 Normal in multigravida 3233168690 97805 Z34.82 Gestation period, 14 weeks 08557017 Z3A.14 [id number] Charlie Briscoe MD [facility] ([facility]) [address] [place] [phone] 03/04/2023 09:55:32 03/04/2023 13:20:32 Chlamydial infection 643106763 A56.02 [id number] Charlie Briscoe MD [facility] ([facility]) [address] [place] [phone] 08/04/2023 11:32:04 08/04/2023 22:05:39 [id number] Pooja Amaral MD [facility] ([facility]) [address] [place] [phone] 5 09/08/2023 10:13:18 09/08/2023 14:32:49 Postoperative pain 011929995 G89.18 Pt was reassured that her discomfort is wnl and is not worsening since Sat. She needs to abstain from intercours e for 4-6 weeks from TODAY. Abnormal v aginal bleeding 979090480 N93.9 I reassured pt that her bleeding is not from the tubal. [id number] [facility] [address] [place] [phone] 11/20/2023 09:28:16 11/20/2023 10:03:59 Costal chondritis 57270093 M94.0 Discussed use of ibuprofen twice a day with food for next 1 week. Return if you develop fever, sputum production , or symptoms worsen No signs of cardiac origin of pain. [id number] RJ ROONEY [facility] ([facility]) [address] [place] [id number] 12/25/2023 17:37:22 12/25/2023 18:14:26 Venereal disease screening 763431763 Z11.3 Swabs collected today. Will contact patient with results.Di scussed no type of sexual contact until results completed. [id number] RJ ROONEY [facility] ([facility]) [address] [place] [phone] 03/02/2024 17:35:50 03/02/2024 18:17:14 Possible 120520298 Z32.00 test negative Menstrual period late 84 748492 N92.6 Dsicussed to monitor for now. 6 days late. F/u if you do not have your cycle for 3 months. Health Concerns Section Related Observation LastModified by Organization Detai ls LastModified Time None Recorded Concern Status LastModified by Organization Details LastModified Time None Recorded Advance Directives Directive None Recorded Payers Insurance Date Sequence Insurance Name Policy Number Policy Coronel Covered Member ID Coronel Member ID Guarantor Name 03/11/2024 1 *SELF PAY* Victor Manuel Hester 03/08/2024 1 [employer]AC[place] - [place]MO) [id number] Nayeli Hester [id number] Nayeli Hester Notes Date Note Type Note Provider Name and Address Organization Details Recorded Time 3 text/html Abnormal BleedingReported by PatientHPIFor associated symptoms, patient reportspelvic painandabdominal painbut reportsno dysmenorrhea,no vaginal discharge, andno vaginal itching/irritation. For onset/timing, patient reportsnew onset bleeding. For quality, patient reportsmoderate,heavy, andred.ROS as noted in the HPI 07/30 [place], , no tear 08/26 two weeks agothey did laparoscopic tubaleverything was fine. was told to wait 4 weeks for intercourse. waited a week, was bleeding, bleeding stopped then had sex, then a few days later started bleeding like thissome pain around left ovary, feels huma different then ovulation.Thursday had intercourse. Pooja Amaral MD [address] [place], [address], [facility], LJosieLJosieCJosie 09/08/2023 14:08:24 4 text/html Angina/Chest PainReported by PatientHPIFor quality, patient reportspressure,heaviness, anddysphagia. For associated symptoms, patient reportschest discomfortandshortness of breath. For location, patient reportsmidsternalandmid substernal. For severity, patient reportsmildandmoderate. For onset/timing, patient reportsstarted 1-2 days agoandintermittent. For alleviating factors, patient reportsrest.no belching, bloating, took ibuprofen the other night with no change. intermittant. wake up with it yesterday and today. resolves by the afternoon. no alcohol. smokes cigarettes.ROS as noted in the HPI RJ ROONEY [address] [place], [address], [facility] 11/20/2023 15:20:32 4 text/html ProblemsReported by PatientGU ProblemsFor context, patient reportssexually activeandunprotected intercourse. For location, patient reportsvagina. For onset/timing, patient reportssudden. For associated symptoms, patient reportsno flank pain,no blood in the urine,no vaginal discharge, andno abdominal pain.Pt states she just found out her significant other was cheating on her. Is requesting to be tested for STDs. Pt states she would need the vaginal and oral testing completed. Pt has no vaginal d/c, odor, sores/lesions.ROS as noted in the HPI RJ ROONEY [address] [place] [address], [phone], [facility] 12/26/2023 08:25:18 4 text/html ROS as noted in the HPI Pt reports being late on her period. Reports being 6 to 7 days late on her period and wants to know what is wrong. She has 3 pregnancies and 3 living children. States her period is usually regular. RJ ROONEY [address] [place] [address], [phone], [facility] 03/02/2024 18:31:09 OBGyn Episode Ob Episode Information Episode Created Date Number of Fetuses Patient Bloodtype Patient rh Status Prepregnancy Weight lbs Domestic Partner Domestic Partner Phone Father Name City Route Driver Status 01/07/20 23 1 CLOSED Fetus Data First Name Last Name Admitted to NICU Weight (g) Sex Living Outcome Pediatric Complications Fetus ID Race Codes Race Delivery Type 3600.15 [id number] F Full Term 422 VAGINAL [place] Calculation Initial [place] Date Initial Exam Date Initial Exam Provider Initial Ultrasound Date Last Menstrual Period Date Ultra Sound Weeks Gestation 0 Eighteen To Twenty Week [place] Update Ultra Sound Date Fundal Height At Umbil Quickening Date Ultra Sound Latest Weeks Gestation Final [place] Confirmed By Final [place] Confirmed Date Final [place] Date Ultra Sound Latest Days Gestation 0 0 Menstrual History Last Menstrual Date Menses Monthly On Bcp Conception Prior Menses Frequency Hcg Plus Date Menarche Onset Age Delivery Information Delivery Date Delivery Type Labor Anesthesia Weeks Gestation Incision Type Labor Labor Length Hrs Delivered By Post Complications Tubal Sterilization Discharge Date Comments 0 Regional-Ep idural 41 AROM Discharge Information Feeding Method Contraceptive Method Maternal HG B and HCT Levels Ob Episode Information Episode Created Date Number of Fetuses Patient Bloodtype Patient rh Status Prepregnancy Weight lbs Domestic Partner Domestic Partner Phone Father Name City Route Driver Status 01/07/20 23 1 CLOSED Fetus Data First Name Last Name Admitted to NICU Weight (g) Sex Living Outcome Pediatric Complications Fetus ID Race Codes Race Delivery Type 3146.56 [id number] F Full Term 423 VAGINAL [place] Calculation Initial Feder[place] Date Initial Exam Date Initial Exam Provider Initial Ultrasound Date Last Menstrual Period Date Ultra Sound Weeks Gestation 0 Eighteen To Twenty Week Fed[place]ico Update Ultra Sound Date Fundal Height At Umbil Quickening Date Ultra Sound Latest Weeks Gestation Final [place] Confirmed By Final [place] Confirmed Date Final [place] Date Ultra Sound Latest Days Gestation 0 0 Menstrual History Last Menstrual Date Menses Monthly On Bcp Conception Prior Menses Frequency Hcg Plus Date Menarche Onset Age Delivery Information Delivery Date Delivery Type Labor Anesthesia Weeks Gestation Incision Type Labor Labor Length Hrs Delivered By Post Complications Tubal Sterilization Discharge Date Comments 2 [facility]-Ep idural 38 inductio n , AROM Discharge Information Feeding Method Contraceptive Method Maternal HG B and HCT Levels Ob Episode Information Episode Created Date Number of Fetuses Patient Bloodtype Patient rh Status Prepregnancy Weight lbs Domestic Partner Domestic Partner Phone Father Name City Route Driver Status 01/07/20 23 1 O Negative OPEN Fetus Data First Name Last Name Admitted to NICU Weight (g) Sex Living Outcome Pediatric Complications Fetus ID Race Codes Race Delivery Type 424 Problems Problem Notes Check Chlamydia in March and at 36 weeks. Problem Name Start Date End Date Resolution Snomed Code Not e Blood group O Rh(D) negative 2 43018922 Chlamydial infection 03/02/2023 25685065 0 Normal in multigravida 01/06/2023 516352753080029 [place] Calculation Initial [place] Date Initial Exam Date Initial Exam Provider Initial Ultrasound Date Last Menstrual Period Date Ultra Sound Weeks Gestation 08/05/2023 01/06/2023 01/19/2023 09/29/2022 11 Eighteen To Twenty Week [place] Update Ultra Sound Date Fundal Height At Umbil Quickening Date Ultra Sound Latest Weeks Gestation Final [place] Confirmed By Final [place] Confirmed Date Final [place] Date Ultra Sound Latest Days Gestation 0 02/02/2023 08/05/20 23 0 Pre-mariam Flowsheet Flowsheet Date 01/06/2023 Modi Score Blood Edema Fundus Height Fundus Units Glucose Ketones Leukocytes Nitrite Labor Signs Protein Cervic Dilation Cervic Effacement Cervic Station Type Weight in lbs Pre/Post Dialysis Refused Weight 130.823120015585 BP Diastolic BP Location Tested BP Systolic BP Type 68 L arm 110 Fetus Heart Rate Present A 168 Present Fetus Movement A No Comments OBI Flowsheet Date 01/19/2023 Modi Score Blood Edema Fundus Height Fundus Units Glucose Ketones Leukocytes Nitrite Labor Signs Protein Cervic Dilation Cervic Effacement Cervic Station Type Weight in lbs Pre/Post Dialysis Refused BP Diastolic BP Location Tested BP Systolic BP Type Fetus Heart Rate Present Fetus Movement Comments Flowsheet Date 02/02/2023 Modi Score Blood Edema Fundus Height Fundus Units Glucose Ketones Leukocytes Nitrite Labor Signs Protein Cervic Dilation Cervic Effacement Cervic Station Type Weight in lbs Pre/Post Dialysis Refused BP Diastolic BP Location Tested BP Systolic BP Type Fetus Heart Rate Present Fetus Movement Comments u/s on 01/19/23, FEDER[place] 08/05/23, EGA 11.5 Flowsheet Date 02/06/2023 Modi Score Blood Edema Fundus Height Fundus Units Glucose Ketones Leukocytes Nitrite Labor Signs Protein Cervic Dilation Cervic Effacement Cervic Station Type Weight in lbs Pre/Post Dialysis Refused BP Diastolic BP Location Tested BP Systolic BP Type Fetus Heart Rate Present Fetus Movement Comments RA completed for Healthy Blake e. Flowsheet Date 02/10/2023 Modi Score Blood Edema Fundus Height Fundus Units Glucose Ketones Leukocytes Nitrite Labor Signs Protein Cervic Dilation Cervic Effacement Cervic Station Type Weight in lbs Pre/Post Dialysis Refused Weight 127.398207675470 BP Diastolic BP Location Tested BP Systolic BP Type 66 110 Fetus Heart Rate Present A 164 Present Fetus Movement Comments NOB Flowsheet Date 03/04/2023 Modi Score Blood Edema Fundus Height Fundus Units Glucose Ketones Leukocytes Nitrite Labor Signs Protein Cervic Dilation Cervic Effacement Cervic Station 19 cm Type Weight in lbs Pre/Post Dialysis Refused Weight 125.496826499429 BP Diastolic BP Location Tested BP Systolic BP Type 60 110 Fetus Heart Rate Present A 160 Present Fetus Movement A Yes Comments f/u on lab Flowsheet Date 08/04/2023 Modi Score Blood Edema Fundus Height Fundus Units Glucose Ketones Leukocytes Nitrite Labor Signs Protein Cervic Dilation Cervic Effacement Cervic Station Type Weight in lbs Pre/Post Dialysis Refused BP Diastolic BP Location Tested BP Systolic BP Type Fetus Heart Rate Present Fetus Movement Comments Flowsheet Date 09/08/2023 Modi Score Blood Edema Fundus Height Fundus Units Glucose Ketones Leukocytes Nitrite Labor Signs Protein Cervic Dilation Cervic Effacement Cervic Station Type Weight in lbs Pre/Post Dialysis Refused With clothes 125.834763343047 BP Diastolic BP Location Tested BP Systolic BP Type 72 L arm 126 sitting Fetus Heart Rate Present Fetus Movement Comments Flowsheet Date 11/20/2023 Modi Score Blood Edema Fundus Height Fundus Units Glucose Ketones Leukocytes Nitrite Labor Signs Protein Cervic Dilation Cervic Effacement Cervic Station Type Weight in lbs Pre/Post Dialysis Refused With clothes 131.151065387237 BP Diastolic BP Location Tested BP Systolic BP Type 66 R arm 98 sitting Fetus Heart Rate Present Fetus Movement Comments Flowsheet Date 12/25/2023 Modi Score Blood Edema Fundus Height Fundus Units Glucose Ketones Leukocytes Nitrite Labor Signs Protein Cervic Dilation Cervic Effacement Cervic Station Type Weight in lbs Pre/Post Dialysis Refused Weight 124.023349126539 BP Diastolic BP Location Tested BP Systolic BP Type 64 R arm 100 sitting Fetus Heart Rate Present Fetus Movement Comments Flowsheet Date 03/02/2024 Modi Score Blood Edema Fundus Height Fundus Units Glucose Ketones Leukocytes Nitrite Labor Signs Protein Cervic Dilation Cervic Effacement Cervic Station Type Weight in lbs Pre/Post Dialysis Refused With clothes 128.648258594294 BP Diastolic BP Location Tested BP Systolic BP Type 66 L arm 110 sitting Fetus Heart Rate Present Fetus Movement Comments Menstrual History Last Menstrual Date Menses Monthly On Bcp Conception Prior Menses Frequency Hcg Plus Date Menarche Onset Age 0109/29/2022 Genetic Screening And Infection History Question Response Note Patient's Age Will Be 35 Yea rs Or Older At Estimated Date of Delivery false Thalassemia (French, Thai, Mediterranean, Or Background): MCV < 80 false Neural Tube Defect (Meningom yelocele, Spina Bifida, Or Anencephaly) false Congenital Heart Defect false Down Syndrome false Luciano-Sachs (eg, Adventist, Cajun, Romanian-[place]) f alse Ruby Disease false Sickle Cell Disease Or Trait () false Hemophilia Or Other Blood Disorders false Muscular Dystrophy false Cystic Fibrosis false Crockett's Chorea false Intellectual Disability/Autism false If Yes, Was Person Tested For Fragile X? false Other Inherited Genetic Or Chromosomal Disorder false Maternal Metabolic Disorder (eg, Type 1 Diabetes , PKU) false Patient Or Baby's Father Had A Child With Defects Not Listed Above false Recurrent Loss, Or A Stillbirth false Medications (including Suppl ements, Vitamins, Herbs, OTC Drugs), Illicit/Recreational Drugs, Alcohol true v itamin If Yes, Agent(s) And Strength/Dosage false Any Other Genetic History false Live With Someone With TB Or Exposed To TB false Patient Or Partner Has History Of Genital Herpes false Rash Or Viral Illness Since Last Menstrual Perio d false History Of STD, Gonorrhea, Chlamydia, HPV, Syphi lis false Other Infection History false History of HIV false History of Hepatitis false Prior GBS-infected child false Hemoglobinopathy Or Carrier false Other Structural Defect false Recent Travel History Outside of Country false Mental Retardation/Autism false Delivery Information Delivery Date Delivery Type Labor Anesthesia Weeks Gestation Incision Type Labor Labor Length Hrs Delivered By Post Complications Tubal Sterilization Discharge Date Comments Discharge Information Feeding Method Contraceptive Method Maternal HG B and HCT Levels
[2025-07-15 22:39] LABS: Rapid Strep A Test Negative (Negative)
--- NOTE | 2025-07-15 23:08 | W.ED.URI ---
HPI - URI/Sore Throat General: Chief Complaint: Upper Respiratory Infection Stated Complaint: throat sore SOB. pain under ribs L side Time Seen by Provider: 07/15/25 22:34 Source: patient Mode of arrival: ambulatory Limitations: no limitations History of Present Illness: Patient is a 25-year-old female presents the emergency department complaining of coughing, shortness of breath, and rib pain for the past few days. Noting sore throat as well. Notes positive sick contacts Vianey to her daughter. States that she thinks she caught what her daughter had. She is noting chills, no fevers at home. Has taken ibuprofen and Mucinex. Her vitals are stable at this time. She has no pertinent past medical history. MD elicited complaint: cough and sore throat Onset (ago): day(s) Context: sick contacts Associated symptoms: Reports chills; Deny abdominal pain, chest pain, diarrhea, ear or mastoid pain, fever(s), headache(s), nausea or vomiting Related Data Previous Rx's ?Medication ?Instructions ?Recorded ondansetron 4 mg disintegrating 4 mg PO TID PRN nausea and 06/07/25 tablet vomiting #30 tabs Allergies Allergy/AdvReac Type Severity Reaction Status Date / Time No Known Allergies Allergy Verified 06/07/25 20:54 Review of Systems General: Reports: 10 or more systems reviewed and unremarkable except in HPI and below Const: Reports: chills; Denies: fever(s) or fatigue Eyes: Denies: change in vision ENMT: Reports: throat pain; Denies: ear or mastoid pain or nasal discharge Card: Denies: chest pain, palpitations, swelling of feet/ankles or lightheadedness Resp: Reports: dyspnea and non-productive cough; Denies: productive cough or wheezing GI: Denies: abdominal pain, nausea, vomiting, diarrhea or constipation : Denies: flank pain, difficulty voiding, dysuria or urinary frequency Musc: Reports: other (Rib pain); Denies: neck pain, back pain or joint pain Skin/Breast: Denies: rash Neuro: Denies: headache(s), numbness in extremities or weakness in extremities PFSH ED PFSH: Social History Smoking and tobacco/nicotine status: current every day tobacco/nicotine user Physical Exam Const: COMMON NORMALS: no acute distress and no limitations GENERAL APPEARANCE: cooperative, comfortable and well developed ORIENTATION/CONSCIOUSNESS: Yes awake OTHER: Tired appearing, nontoxic Neck/C-Spine: COMMON NORMALS: full ROM, supple and no JVD Resp: COMMON NORMALS: normal respiratory effort, No retractions, No use of accessory muscles and clear to auscultation bilaterally AUSCULTATION: clear to auscultation bilaterally Cardio: COMMON NORMALS: no JVD, regular rate, regular rhythm, No clicks present (Cardio), No murmurs present (Cardio) and No rub (Cardio) RATE: regular rate RHYTHM: regular rhythm GI: COMMON NORMALS: Normal to inspection, nondistended, normoactive bowel sounds present, Soft to palpation and non-tender AUSCULTATION: Yes normoactive bowel sounds PALPATION: Yes Soft to palpation RECTAL EXAM: deferred Back/Pelvis: COMMON NORMALS: thoracic and lumbar spine normal to inspection, no thoracic nor lumbar tenderness and thoraco-lumbar ROM normal Extremity: COMMON NORMALS: normal to inspection, full ROM and capillary refill normal Skin: COMMON NORMALS: no rashes or lesions noted GENERAL SKIN EXAM: no rashes or lesions noted Course Vital Signs: Vital signs: Vital Signs Temperature 98.2 F 07/15/25 22:12 Pulse Rate 95 07/15/25 22:12 Respiratory Rate 16 07/15/25 22:12 Blood Pressure 100/62 07/15/25 22:12 Pulse Oximetry 98 07/15/25 22:12 Oxygen Delivery Me thod Room Air 07/15/25 22:12 MDM - URI/Sore Throat Medical Decision Making Patient presenting for symptoms of viral illness after being exposed to her daughter who has been sick recently. 2 days of symptoms, the physical exam was unremarkable, nontoxic and no adventitious heart or lung sounds. Urine did not show any infection, viral swab negative and strep swab was also negative. Suspect viral illness and she can treat at home symptomatically, no reason for labs or further workup in the ED at this time. Lab Data Laboratory Results Urine Color Yellow (Yellow) 07/15/25 22:19 Urine Appearance Clear (CLEAR) 07/15/25 22:19 Urine pH 5 (5-7) 07/15/25 22:19 Ur Specific [place] 1.020 (1.005-1.030) 07/15/25 22:19 Urine Protein Neg (Negative) 07/15/25 22:19 Urine Glucose (UA) Norm (Normal) 07/15/25 22:19 Urine Ketones Negative (Negative) 07/15/25 22:19 Urine Blood Neg (Negative) 07/15/25 22:19 Urine Nitrate Negative (Negative) 07/15/25 22:19 Urine Bilirubin Neg (Negative) 07/15/25 22:19 Urine Urobilinogen Neg mg/dL (Negative) 07/15/25 22:19 Ur Leukocyte Esterase Negative (Negative) 07/15/25 22:19 Amorphous Sediment Not Reportable 07/15/25 22:19 Influenza A (PCR) Negative (Negative) 07/15/25 22:18 Influenza Type B (PCR) Negative (Negative) 07/15/25 22:18 RSV (PCR) Negative (Negative) 07/15/25 22:18 SARS-CoV-2 (PCR) Negative (Negative) 07/15/25 22:18 Group A Strep Rapid Negative (Negative) 07/15/25 22:18 No radiology studies performed this visit Discharge Plan Discharge Patient Disposition: Home Clinical Impression: Viral infection Condition: Stable Prescriptions: No Action ondansetron 4 mg tablet,disintegrating 4 mg PO TID PRN (Reason: nausea and vomiting) Qty: 30 0RF Discharge Orders: Discharge ED (Routine); Ordered 07/15/25 Ordered By: Vicente Alvarez Referrals: Charlie Briscoe MD [Primary Care Provider, [facility]] Patient Instructions: Patient Portal & [place] Instructions Activity Restrictions/Additional Instructions: Viral Syndrome Discharge You have been diagnosed with a viral syndrome, which means your symptoms are caused by a virus. Your tests for COVID-19, influenza, RSV, strep throat, and urine infection were all negative. Most viral illnesses in healthy adults get better on their own and do not need antibiotics or antiviral medicines. What to expect: - You may have symptoms like fever, cough, sore throat, runny nose, body aches, or tiredness. These usually improve in a few days, but sometimes can last up to a week. - Rest, drink plenty of fluids, and use [id number] medicines (like acetaminophen or ibuprofen) for fever or pain as needed. - Eat light meals and avoid strenuous activity until you feel better. When to seek medical attention: - If you develop trouble breathing, chest pain, severe weakness, confusion, or cannot keep fluids down. - If your symptoms last longer than 7 days or suddenly get much worse. - If you have underlying health problems (like asthma, heart disease, or a weakened immune system) and feel your condition is worsening. Prevent spreading the virus: - Wash your hands often. - Cover your mouth and nose when coughing or sneezing. - Stay home until you feel better and avoid close contact with others, especially those who are very young, elderly, or have chronic health conditions. Follow-up: - Most people recover without complications. If you have any concerns or new symptoms, contact your healthcare provider. No antibiotics or antivirals are needed at this time, as your illness is not caused by bacteria or a virus that requires specific treatment. Supportive care is the mainstay of management for otherwise healthy adults with viral respiratory infections. Print Language: French Coding Level of Care Code ED Resource Manager for Clayton Mcknight
[2025-07-15 23:09] LABS: Add Urine Microscopic? NO
[2025-07-15 23:11] LABS: Respiratory Syncytial Virus Ce NEGATIVE (Negative); SARS-CoV-2 PCR NEGATIVE (Negative)
[2025-07-15 23:20] LABS: Glucose Urine UA Norm (Normal); Nitrate Urine Negative (Negative); Specific Gravity, Urine 1.020 (1.005-1.030)
[2025-07-15 23:21] LABS: Charge for UA Resulting for Rev
== END 2025-07-15 23:31 | disposition home or self-care (01) ==
PROVIDERS: Emergency Medicine; Emergency Provider Physician Assistant; PCP Family Medicine
DX: B34.9 Viral infection, unspecified (principal); Z11.52 Encounter for screening for COVID-19; Z72.0 Tobacco use
CPT/HCPCS: 81003; 87081; 87637; 87880; 96372; 99284; J1885; Q0162